=== PATIENT | male | born 1955 | race Caucasian/White ===

== ENCOUNTER 2016-10-04 17:33 | Emergency (ER) ==
[2016-10-04 17:38] VITALS: BP 172/84; TEMP 96.7; BMI 22.9
--- NOTE | 2016-10-04 17:50 | ED.PDOC ---
General ED Provider: Dr. NAREN PRIDE JR Chief Complaint: Nausea/Vomiting Stated Complaint: HAS HAD NAUSEA, VOMITING AND DIARRHEA FOR 1 WEEK, ALSO HAS BACK PAIN. WORSE TODAY. ATE CHILI CHEESE FRITOS TODAY AND UNABLE TO KEEP THEM DOWN [End] 96.7 68 18 97% 172/84 10/10 6 times 24 hours last 30 min ago. staes nausea only three days with dry heaves past 12 hours emesis six times in a row after eating today(no chili no cheese)complains of feeling weak pain in neck back and abdomen, agrees to try oral zofran for symptoms Time Seen by Physician: 17:49 Mode of Arrival: Walk-In Information Source: Patient Exam Limitations: No limitations Primary Care Provider: FELICIA AK Nursing and Triage Documentation Reviewed and Agree: No Review of Systems - Review Of Systems Constitutional: Reports: Malaise, Weakness Eyes: Reports: No symptoms Ears, Nose, Mouth, Throat: Reports: No symptoms Respiratory: Reports: No symptoms Cardiac: Reports: No symptoms GI: Reports: Abdominal pain, Diarrhea, Nausea, Vomiting : Reports: Burning, Flank pain, Pain Musculoskeletal: Reports: Back pain Skin: Reports: No symptoms Neurological: Reports: No symptoms Endocrine: Reports: No symptoms Hematologic/Lymphatic: Reports: No symptoms All Other Systems: Other Past Medical History - Past Medical History Endocrine: Reports: Dyslipidemia Cardiovascular: Reports: CAD, [facility], Hypertension Respiratory: Reports: COPD Hematological: Reports: None Gastrointestinal: Reports: None Genitourinary: Reports: None Neuro/Psych: Reports: None Musculoskeletal: Reports: Back Pain, Joint Pain Cancer: Reports: None - Surgical History General Surgical History: Reports: Back Surgery (back surgery 1978) - Family History Family History: Reports: Hypertension - Social History Smoking Status: Current every day smoker, Heavy tobacco smoker Hx Substance Use: No Alcohol Screening: None Physical Exam - Physical Exam Appearance: Well-appearing Ill-appearing: Mild Pain Distress: Mild Eyes: NILE, EOMI, Conjunctiva clear ENT: Ears normal, Nose normal, Oropharynx normal Neck: Supple Respiratory: Airway patent, Breath sounds clear, Breath sounds equal, Respirations nonlabored Cardiovascular: RRR, Pulses normal, No rub, No murmur GI/: Soft, No masses, Bowel sounds normal, No Organomegaly, Tender (mildly poorly localized periumbilical no rebound no guarding) Musculoskeletal: Normal strength, ROM intact, No edema, No calf tenderness Skin: Warm, Dry, Normal color Neurological: Sensation intact, Motor intact, Reflexes intact, Cranial nerves intact, Alert, Oriented Psychiatric: Affect appropriate (but-smiles when reporting pain), Mood appropriate Interpretation - EKG Interpretation Time of EKG #1: 18:00 Rate: German (58) Rhythm: Sinus Ectopy: None Butler: NL ST Segment: Normal Critical Care Note - Critical Care Note Total Time (mins): 0 Course - Course Hematology/Chemistry: 10/04/16 17:59 10/04/16 17:59 Orders, Labs, Meds: Lab Review 10/04/16 10/04/16 17:59 18:30 WBC 8.70 RBC 3.46 L Hgb 10.4 L Hct 31.2 L MCV 90.2 MCH 30.1 MCHC 33.3 RDW Coeff of Kody 14.1 Plt Count 271 Immature Gran % (Auto) 0.2 Neut % (Auto) 60.6 Lymph % (Auto) 24.7 Donley % (Auto) 10.2 H Eos % (Auto) 3.3 Baso % (Auto) 1.0 Immature Gran # (Auto) 0.0 Neut # 5.3 Lymph # 2.2 Donley # 0.9 Eos # 0.3 Baso # 0.1 Sodium 139 Potassium 4.0 Chloride 107 Carbon Dioxide 23 Anion Gap 13.0 BUN 16 Creatinine 1.38 H Estimated GFR (MDRD) 52.00 BUN/Creatinine Ratio 11.59 Glucose 104 Calcium 8.8 Total Bilirubin 0.29 AST 16 ALT 14 Alkaline Phosphatase 91 Total Creatine Kinase 45 Troponin I < 0.0100 B-Natriuretic Peptide 63 Total Protein 6.8 Albumin 3.4 Globulin 3.4 Albumin/Globulin Ratio 1.00 Urine Color Yellow Urine Clarity Clear Urine pH 5.5 Ur Specific [place] 1.025 Urine Protein Negative Urine Glucose (UA) Negative Urine Ketones Negative Urine Blood Trace-intact Urine Nitrite Negative Urine Bilirubin Negative Urine Urobilinogen 0.2 Ur Leukocyte Esterase Negative Ur Squamous Epith Cells Pending Orders Category Date Time Status EKG-(ED ONLY) Stat CARDIO 10/04/16 17:51 Completed B-TYPE NATRIURETIC PEPTIDE Stat LAB 10/04/16 17:59 Completed CBC W/ AUTO DIFF Stat LAB 10/04/16 17:59 Completed COMPREHENSIVE METABOLIC PANEL Stat LAB 10/04/16 17:59 Completed CREATINE KINASE Stat LAB 10/04/16 17:59 Completed D-DIMER Stat LAB 10/04/16 17:59 Received TROPONIN I Stat LAB 10/04/16 17:59 Completed UA [URINALYSIS C & S IF INDICATED] Stat LAB 10/04/16 18:30 Received Ondansetron HCl [Zofran Tab] MEDS 10/04/16 17:52 Discontinued 4 mg PO ONCE STA Medications Discontinued Medications Generic Name Dose Route Start Last Admin Trade Name Talq PRN Reason Stop Dose Admin Ondansetron HCl 4 mg 10/04/16 17:52 10/04/16 18:13 Zofran Tab PO 10/04/16 17:53 4 mg ONCE STA Administration Vital Signs: Temp Pulse Resp BP Pulse Ox 10/04/16 17:33 96.7 F L 69 18 172/84 H 97 Departure - Departure Time of Disposition: 18:42 Disposition: HOME SELF-CARE Discharge Problem: Nausea, Vomiting Instructions: Acute Nausea and Vomiting (ED), Abdominal Pain (ED) Condition: Good Pt referred to PMD for follow-up: Yes Additional Instructions: clear liquids when you have nausea clear liquids for 12 hours after vomiting increase liquids phenergan or zofran for nausea(phenergan costs less) may use peptobismol for diarrhea recheck PMD next week may follow with [facility] probably best to call [facility] for prescriptions or follow up if qualified Prescriptions: Ondansetron HCl [Zofran Tab] 4 mg PO QID PRN #12 tablet PRN Reason: Nausea / Vomiting Promethazine HCl [Phenergan Tab] 25 mg PO QID PRN #12 tablet PRN Reason: Nausea / Vomiting Allergies/Adverse Reactions: Allergies meloxicam Adverse Reaction (Verified 10/04/16 17:38) Vomiting naproxen Adverse Reaction (Verified 10/04/16 17:38) Vomiting tramadol Adverse Reaction (Verified 10/04/16 17:38) Hives Home Medications: Ambulatory Orders Albuterol Sulfate 1.25 mg NEB QID PRN 01/26/13 Aspirin [Aspirin EC] 81 mg PO DAILY 01/26/13 Multivitamin [Multi-Vitamin Daily] 1 each PO DAILY 11/19/14 Carboxymethylcellulose Sodium [Lubricant Eye Drops] 1 drop EACHEYE QID PRN 06/12 Hydrocodone/Acetaminophen [[place] 10-325 Tablet] 1 each PO Q6HR PRN #7 tablet Ferrous Sulfate [Feosol] 325 mg PO BID 03/26/16 Lisinopril [Zestril] 20 mg PO DAILY 03/26/16 Diltiazem HCl [Cartia Xt] 60 mg PO BID 10/04/16 Ondansetron HCl [Zofran Tab] 4 mg PO QID PRN #12 tablet 10/04/16 Promethazine HCl [Phenergan Tab] 25 mg PO QID PRN #12 tablet 10/04/16
[2016-10-04] MEDS ORDERED: ZOFRAN TAB PO STA (17:52)
[2016-10-04 18:18] LABS: BASOPHILS # (AUTO) 0.1 K/uL (0-0.2); EOSINOPHILS # (AUTO) 0.3 K/ul (0.0-0.7); EOSINOPHILS % (AUTO) 3.3 % (0.0-7.0); HEMATOCRIT 31.2 % (42.0-52.0); HEMOGLOBIN 10.4 g/dl (14.0-18.0); IMMATURE GRANULOCYTE % (AUTO) 0.2 % (0.0-5.0); LYMPHOCYTES # (AUTO) 2.2 K/uL (0.60-3.4); LYMPHOCYTES % (AUTO) 24.7 (10.0-50.0); MEAN CORPUSCULAR HEMOGLOBIN 30.1 pg (27.0-31.0); MEAN CORPUSCULAR HGB CONC 33.3 (31.8-35.4); MEAN CORPUSCULAR VOLUME 90.2 fl (80.0-94.0); MONOCYTES # (AUTO) 0.9 K/uL (0.4-2.0); MONOCYTES % (AUTO) 10.2 (0-10); NEUTROPHILS # (AUTO) 5.3 K/ul (2.0-6.9); NEUTROPHILS % (AUTO) 60.6; PLATELET COUNT 271 10^3/uL (140-440); RED BLOOD COUNT 3.46 10^6/ul (4.70-6.10)
[2016-10-04 18:37] LABS: BILIRUBIN,URINE Negative (NEGATIVE); KETONES,URINE Negative (NEGATIVE); LEUKOCYTE ESTERASE ,URINE Negative (NEGATIVE); NITRITE,URINE Negative (NEGATIVE); PH,URINE 5.5 (5-9); PROTEIN,URINE Negative (NEGATIVE); URINE, BLOOD Trace-intact (NEGATIVE)
[2016-10-04 18:38] LABS: ALANINE AMINOTRANSFERASE 14 U/L (12-78); ALBUMIN 3.4 g/dL (3.4-5.0); ALKALINE PHOSPHATASE 91 U/L (56-119); ASPARTATE AMINO TRANSFERASE 16 U/L (15-37); BILIRUBIN,TOTAL 0.29 mg/dL (0.00-1.20); BLOOD UREA NITROGEN 16 mg/dL (7-18); BUN/CREATININE RATIO 11.59; CALCIUM 8.8 mg/dL (8.2-10.2); CARBON DIOXIDE 23 mmol/L (23-31); CHLORIDE 107 mmol/L (98-107); CREATINE KINASE 45 U/L; CREATININE 1.38 mg/dL (0.60-1.10); GLUCOSE 104 mg/dL (82-115); SODIUM 139 mmol/L (136-145); TOTAL PROTEIN 6.8 g/dL (5.8-8.1)
[2016-10-04 18:41] LABS: ADD URINE MICROSCOPIC YES
== END 2016-10-04 18:56 | disposition home or self-care (01) ==
LOC: ED 17:33
DX: R11.2 Nausea with vomiting, unspecified (principal); R19.7 Diarrhea, unspecified; R10.9 Unspecified abdominal pain; M54.9 Dorsalgia, unspecified; R53.1 Weakness; M54.2 Cervicalgia; I10 Essential (primary) hypertension; I25.10 Atherosclerotic heart disease of native coronary artery without angina pectoris; E78.5 Hyperlipidemia, unspecified; I25.2 Old myocardial infarction; F17.210 Nicotine dependence, cigarettes, uncomplicated; J44.9 Chronic obstructive pulmonary disease, unspecified; Z79.899 Other long term (current) drug therapy
CPT/HCPCS: 36415; 80053; 81001; 82550; 83880; 84484; 85025; 85379; 93005; 93010; 99283

== ENCOUNTER 2016-12-05 15:15 | Outpatient (CLI) ==
[2016-12-05 15:29] LABS: BASOPHILS # (AUTO) 0.1 K/uL (0-0.2); BASOPHILS % (AUTO) 0.7 % (0.0-3.0); EOSINOPHILS # (AUTO) 0.1 K/ul (0.0-0.7); EOSINOPHILS % (AUTO) 0.9 % (0.0-7.0); HEMATOCRIT 35.4 % (42.0-52.0); HEMOGLOBIN 11.9 g/dl (14.0-18.0); IMMATURE GRANULOCYTE % (AUTO) 0.4 % (0.0-5.0); LYMPHOCYTES # (AUTO) 2.5 K/uL (0.60-3.4); LYMPHOCYTES % (AUTO) 21.4 (10.0-50.0); MEAN CORPUSCULAR HEMOGLOBIN 30.6 pg (27.0-31.0); MEAN CORPUSCULAR HGB CONC 33.6 (31.8-35.4); MONOCYTES # (AUTO) 0.8 K/uL (0.4-2.0); MONOCYTES % (AUTO) 6.6 (0-10); NEUTROPHILS # (AUTO) 8.3 K/ul (2.0-6.9); PLATELET COUNT 286 10^3/uL (140-440); RED BLOOD COUNT 3.89 10^6/ul (4.70-6.10)
[2016-12-05 16:08] LABS: ALBUMIN 4.1 g/dL (3.4-5.0); ALBUMIN/GLOBULIN RATIO 0.93; ANION GAP 22.3; BILIRUBIN,TOTAL 0.33 mg/dL (0.00-1.20); BUN/CREATININE RATIO 12.55; CALCIUM 9.3 mg/dL (8.2-10.2); POTASSIUM 5.3 mmol/L (3.5-5.1); TOTAL PROTEIN 8.5 g/dL (5.8-8.1)
--- NOTE | 2016-12-05 16:11 | DI ---
Exam: Two x-rays of the chest. Comparison: 03/26/2016. Reason for exam: Chest pain. FINDINGS: No pneumothorax, pleural effusion, or focal consolidation. The cardiac silhouette is not enlarged. The imaged osseous structures appear grossly unremarkable without acute fracture. Impression: No acute cardiopulmonary process.
[2016-12-05 16:45] LABS: CREATININE 4.46 mg/dL (0.60-1.10)
== END 2016-12-05 15:16 | disposition home or self-care (01) ==
LOC: RAD 15:15
PROVIDERS: ATTEND Nurse Practitioner Family
DX: R07.89 Other chest pain (principal); R11.2 Nausea with vomiting, unspecified; R53.83 Other fatigue
CPT/HCPCS: 36415; 80053; 85025; 93005; 93010

== ENCOUNTER 2016-12-05 19:19 | Inpatient (IN) ==
[2016-12-05] MEDS ORDERED: GI COCKTAIL PO STA (19:25)
[2016-12-05] MEDS ORDERED: ZOFRAN 4 MG/2 ML IVP PRN (19:25)
[2016-12-05] MEDS ORDERED: SODIUM CHLORIDE 1,000 ML IV SCH (19:30)
[2016-12-05 19:51] LABS: AMYLASE 78 U/L (25-115); LIPASE 28 U/L (8-78)
--- NOTE | 2016-12-05 20:08 | CT ---
EXAM: CT abdomen and pelvis without contrast. HISTORY: Abdominal pain. TECHNIQUE: Multi-slice transaxial helical CT. Coronal and sagittal reformatons were performed. COMPARISON: 12/13/2007. FINDINGS: The heart is normal in size. Coronary artery calcifications are present. Bibasilar dependent atele ctasis is present. Otherwise the lung bases appear clear. Evaluation of the solid organs is limited without IV contrast. There is marked atrophy of the left kidney. There is compensatory hypertrophy of the right kidney. No evidence of renal calculus or hy dronephrosis is seen. The spleen is normal in size. There is no intrahepatic biliary ductal dilati on. The gallbladder, pancreas, and bilateral adrenal glands appear grossly unremarkable. The bowel is not dilated. The appendix is normal in size. The urinary bladder appears unremarkable. No evidence of free fluid in the abdomen pelvis is seen. Calcified plaques are present within the abdominal aorta and its major branch vessels. There is no retroperitoneal adenopathy. Osseous fus ion changes of the bilateral sacroiliac joints is present. Osteoarthritis of the bilateral hips are present. Laminectomy changes are seen at L5-S1. Osseous fusion changes of the posterior elements spanning L3-S1 are present. Neural foraminal narrowing is present at the lower lumbar levels. There is moderate to severe narrowing of the central canal at L3-L4. IMPRESSION: 1. No acute abdominal findings. 2. Marked atrophy of the left kidney. 3. No hydronephrosis, bowel obstruction, or intra-abdominal inflammation. 4. Operative changes of the lumbar spine with lower lumbar central canal and neural foraminal narro wing. MRI would better evaluate if clinically indicated. Moderate to severe narrowing of the centra l canal at L3-L4.
[2016-12-05 20:28] VITALS: BMI 23.3
[2016-12-05] MEDS: PROTONIX IV IVP SCH (20:28)
[2016-12-05] MEDS ORDERED: CARBOXYMETHYLCELLULOSE SODIUM EACHEYE PRN (20:34)
[2016-12-05] MEDS: MORPHINE 2 MG/ML SYRINGE IVP PRN (20:46)
[2016-12-05] MEDS ORDERED: CARDIZEM CD PO SCH (21:00)
[2016-12-06 01:27] LABS: TROPONIN I 0.031 ng/ml (0.0000-0.4000)
[2016-12-06 04:43] LABS: BASOPHILS # (AUTO) 0.1 K/uL (0-0.2); BASOPHILS % (AUTO) 1.2 % (0.0-3.0); EOSINOPHILS # (AUTO) 0.3 K/ul (0.0-0.7); EOSINOPHILS % (AUTO) 3.6 % (0.0-7.0); HEMATOCRIT 33.3 % (42.0-52.0); HEMOGLOBIN 11.1 g/dl (14.0-18.0); IMMATURE GRANULOCYTE % (AUTO) 0.2 % (0.0-5.0); LYMPHOCYTES # (AUTO) 2.8 K/uL (0.60-3.4); LYMPHOCYTES % (AUTO) 32.9 (10.0-50.0); MEAN CORPUSCULAR HEMOGLOBIN 30.2 pg (27.0-31.0); MEAN CORPUSCULAR HGB CONC 33.3 (31.8-35.4); MEAN CORPUSCULAR VOLUME 90.5 fl (80.0-94.0); MONOCYTES # (AUTO) 0.7 K/uL (0.4-2.0); MONOCYTES % (AUTO) 8.8 (0-10); NEUTROPHILS # (AUTO) 4.5 K/ul (2.0-6.9); NEUTROPHILS % (AUTO) 53.3; PLATELET COUNT 236 10^3/uL (140-440); RED BLOOD COUNT 3.68 10^6/ul (4.70-6.10); WHITE BLOOD COUNT 8.41 K/ul (4.2-10.2)
[2016-12-06 05:06] LABS: ALBUMIN 3.7 g/dL (3.4-5.0); ALBUMIN/GLOBULIN RATIO 1.09; ANION GAP 21.4; BILIRUBIN,TOTAL 0.34 mg/dL (0.00-1.20); BUN/CREATININE RATIO 18.88; CALCIUM 8.6 mg/dL (8.2-10.2); CREATININE 2.86 mg/dL (0.60-1.10); POTASSIUM 4.4 mmol/L (3.5-5.1); TOTAL PROTEIN 7.1 g/dL (5.8-8.1)
[2016-12-06] MEDS: MORPHINE 2 MG/ML SYRINGE IVP PRN ×2 (06:12→20:52)
[2016-12-06] MEDS ORDERED: PRILOSEC PO SCH (06:30)
[2016-12-06] MEDS ORDERED: ARTIFICIAL TEARS OPTH SOL OP PRN (07:03)
[2016-12-06] MEDS: SODIUM CHLORIDE 1,000 ML IV SCH (08:19)
[2016-12-06] MEDS: PROTONIX IV IVP SCH ×2 (08:49→20:42)
[2016-12-06] MEDS: DECADRON 4 MG/ML SDV IM SCH (08:49)
[2016-12-06] MEDS ORDERED: NON-FORMULARY MEDICATION (Multivitamin [Multi-Vitamin Daily] 1 EACH) PO SCH ×22 (09:00)
[2016-12-06] MEDS ORDERED: CARDIZEM PO SCH (09:00)
[2016-12-06] MEDS ORDERED: NON-FORMULARY MEDICATION (Lisinopril [Zestril] 20 MG) PO SCH ×22 (09:00)
[2016-12-06 09:46] LABS: TROPONIN I 0.01 ng/ml (0.0000-0.4000)
[2016-12-06] MEDS: DUONEB NEB SCH ×3 (10:04→20:03)
--- NOTE | 2016-12-06 10:06 | US ---
EXAM: Renal ultrasound. History: Left renal atrophy. Comparison: CT abdomen pelvis 12/05 2016 Technique: Multiple sonographic images through the kidneys were obtained. Color duplex Doppler was used to interrogate vascular flow. Findings: The right kidney measures 11.3 cm in long length demonstrating normal cortical echogenicity without evidence for hydronephrosis, mass or shadowing calculus. The visualized bladder demonstrates no gross abnormality. Left kidney measures 8 cm in long length without evidence for hydronephrosis, mass or shadowing calc ulus. Impression: 1. Normal right kidney. 2. Left renal atrophy.
[2016-12-06] MEDS: MULTIVITAMIN PO SCH (10:19)
[2016-12-06] MEDS: ZESTRIL PO SCH (10:20)
[2016-12-07] MEDS: SODIUM CHLORIDE 1,000 ML IV SCH (04:00)
[2016-12-07 04:49] LABS: BASOPHILS # (AUTO) 0.1 K/uL (0-0.2); BASOPHILS % (AUTO) 0.5 % (0.0-3.0); EOSINOPHILS # (AUTO) 0.1 K/ul (0.0-0.7); EOSINOPHILS % (AUTO) 0.5 % (0.0-7.0); HEMATOCRIT 30.5 % (42.0-52.0); HEMOGLOBIN 10.2 g/dl (14.0-18.0); IMMATURE GRANULOCYTE % (AUTO) 0.3 % (0.0-5.0); LYMPHOCYTES # (AUTO) 2.1 K/uL (0.60-3.4); LYMPHOCYTES % (AUTO) 22.4 (10.0-50.0); MEAN CORPUSCULAR HEMOGLOBIN 30.4 pg (27.0-31.0); MEAN CORPUSCULAR HGB CONC 33.4 (31.8-35.4); MEAN CORPUSCULAR VOLUME 90.8 fl (80.0-94.0); MONOCYTES # (AUTO) 0.7 K/uL (0.4-2.0); NEUTROPHILS # (AUTO) 6.4 K/ul (2.0-6.9); NEUTROPHILS % (AUTO) 69.3; PLATELET COUNT 234 10^3/uL (140-440); RED BLOOD COUNT 3.36 10^6/ul (4.70-6.10); WHITE BLOOD COUNT 9.26 K/ul (4.2-10.2)
[2016-12-07 05:11] LABS: ALBUMIN 3.3 g/dL (3.4-5.0); ALBUMIN/GLOBULIN RATIO 1.03; ANION GAP 17.1; BILIRUBIN,TOTAL 0.25 mg/dL (0.00-1.20); BUN/CREATININE RATIO 22.42; CALCIUM 8.3 mg/dL (8.2-10.2); CREATININE 1.65 mg/dL (0.60-1.10); POTASSIUM 5.1 mmol/L (3.5-5.1); TOTAL PROTEIN 6.5 g/dL (5.8-8.1)
[2016-12-07] MEDS: DUONEB NEB SCH ×2 (05:15→09:37)
[2016-12-07] MEDS: ZESTRIL PO SCH (08:28)
[2016-12-07] MEDS: MULTIVITAMIN PO SCH (08:28)
[2016-12-07] MEDS: DECADRON 4 MG/ML SDV IM SCH (08:29)
[2016-12-07] MEDS: PROTONIX IV IVP SCH (08:29)
[2016-12-07 10:41] VITALS: BP 146/69; TEMP 97.9
--- NOTE | 2016-12-07 15:52 | HP ---
DATE OF SERVICE: 12/05/16 REASON FOR HOSPITALIZATION: Nausea, vomiting and abdominal pain. HISTORY OF PRESENT ILLNESS: The patient is a 61 year old male who saw Radha Barber in the [facility] for nausea and vomiting and abdominal pain. She did some outpatient labs which showed the acute renal failure with the BUN 46, creatinine 4.6 and elevated potassium. The patient was sent to the emergency room for the admission. As I saw the patient here I did the direct admission on the patient. In review of renal failure and the gastroenteritis with abdominal pain, nausea and vomiting. He is vomiting whatever he eats and isn't able to keep anything down. Non- bilious vomiting. No blood in the vomiting. REVIEW OF SYSTEMS: CONSTITUTIONAL: No night sweats. Weakness and tiredness. No fever or chills. HEENT: Eyes: No visual changes. No eye pain. No eye discharge. ENT: No runny nose. No epistaxis. No sinus pain. No sore throat. No odynophagia. No ear pain. No congestion. RESPIRATORY: No cough, no congestion. No hemoptysis. CARDIOVASCULAR: No angina symptoms. No CHF symptoms. No atypical chest pain for CAD. No palpitations. No shortness of breath. GASTROINTESTINAL: Abdominal pain. Nausea and vomiting. No diarrhea or constipation. No hematemesis. No hematochezia. GENITOURINARY: No urgency. No frequency. No dysuria. No hematuria. No obstructive symptoms. No discharge. No pain. No significant abnormal bleeding. MUSCULOSKELETAL: No musculoskeletal pain. No joint swelling. No arthritis. NEUROLOGICAL: No headache. No neck pain. No syncope. No seizures. No dizziness. PSYCHIATRIC: Not anxious. No depression. No suicidal thoughts. No homicidal thoughts. SKIN: No rash. No lesions. No wounds. ENDOCRINE: No unexplained weight loss. No weight gain. HEMATOLOGIC/LYMPHATIC: No anemia. No purpura. No petechiae. No prolonged or excessive bleeding. No palpable lymph nodes. PERSONAL/FAMILY/SOCIAL HISTORY: The patient does smoke one pack a day. and lives with . Family history is significant for high blood pressure and heart problems. PAST MEDICAL/SURGICAL PROBLEMS: Coronary artery disease Heart attack 2010 Hypertension Dyslipidemia Headaches Migraine BPH Osteoarthritis Neck pain Depression Anxiety Right knee cartilage removal Spinal fusion, L4 in 1977. Left eye problem MEDICATIONS: Albuterol Aspirin Coreg Zestril Spirolactone Folic Acid Multivitamin Atorvastatin Eye drops [place] ALLERGIES: Meloxicam Naproxen Tramadol PHYSICAL EXAMINATION: VITAL SIGNS: Blood pressure 120/68, respiratory rate 20, heart rate 74 afebrile HEENT: Head normocephalic, atraumatic. Eyes: Extraocular muscles are intact. Pupils are equal, round and reactive to light and accommodation. Ears: No lesions. Nose appeared normal. Throat: No exudate or erythema. Mucosa dry. Pallor positive. No icterus. Mild distress from the abdominal pain. Epigastric tenderness. NECK: Supple. No JVD, no carotid bruit. No lymphadenopathy or thyromegaly. LUNGS: Clear to auscultation. Percussion note normal. Chest symmetrical. HEART: S1, S2, no S3. No murmurs. No cyanosis or clubbing. No ascites. Pulses: Dorsalis pedis and posterior tibial pulses +1 to +2 both sides. ABDOMEN: Soft. Nontender. Bowel sounds active. No CVA tenderness. No mass felt. EXTREMITIES: No edema. Full range of motion of all extremities, equal. NEUROLOGIC: No focal deficit. Cranial nerves II through XII are grossly intact. No headache, no double vision or headache. SKIN: Not dry. Intact. Turgor - normal. LYMPHATIC: No palpable lymph nodes/no lymphedema. MUSCULOSKELETAL: Normal joints with no swelling. Muscle tone is normal. ASSESSMENT: 1. Acute on chronic renal failure 2. Renal failure 3. Gastroenteritis 4. CAD 5. CHF 6. Dyslipidemia 7. Osteoarthritis 8. DJD spine 9. Depression 10.Anxiety PLAN: 1. Admit the patient to the regular floor 2. Telemetry protocol 3. Clear liquid diet 4. Morphine 2mg Q 6 hour PRN 5. Zofran Q 6 hour PRN 6. Protonix and GI cocktail 7. Continue home medication except for Spirolactone Will follow the patient in daily rounds. TIME SPENT: More than 70 minutes. MTDD
--- NOTE | 2016-12-26 13:18 | DS ---
DATE OF SERVICE: 12/07/16 FINAL DIAGNOSIS: 1. ACUTE RENAL FAILURE 2. HEAT EXHAUSTION 3. GASTROENTERITIS 4. ATROPHIC LEFT KIDNEY 5. ANEMIA 6. HYPERTENSION 7. DYSLIPIDEMIA 8. 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 HISTORY OF MIGRAINES 10. NICOTINE USE 11. SINUS BRADYCARDIA PLAN: 1. Discharge the patient home. 2. Follow up in the [facility] with one week. 3. Keep holding the medications Cardizem 60 mg twice daily. 4. Continue the rest of the home medications which are Albuterol inhalers nebulizer three times a day, eye drops, Hydrocodone one tablet p.o. twice daily , Zestril 20 p.o. daily, Multivitamin tablet, Prilosec 20 mg p.o. daily. 5. Diet-soft diet and advance as tolerated. 6. Activity as much as tolerated. DISEASE SPECIFIC EDUCATION: About dehydration, heat exhaustion, gastroenteritis , renal failure were discussed. Again, the patient had an evaluation of the left kidney, atrophic, for which the patient was given and explained to him in detail about what are the possibilities and it needs further evaluation. He verbalized understanding. HOSPITAL COURSE: Damien Yan who is a 61 year old male who sees Cookie Ca in the [facility] as an outpatient. The patient was nausea, vomiting and no feeling good. The prior day, the patient was working the whole day in the sun and was not able to drink enough water. The BUN and creatinine was evaluated. BUN was 56, creatinine was 4.46, at that time Cookie Ca told the patient to go to the emergency room. Potassium was 5.3. At that time, the patient was admitted directly to the floor for the IV fluids and rehydration. The patient was started on the IV fluids and his Cardizem was held because the patient was showing a heart rate of 50 and 54. So, with the IV fluids slowly the patient was feeling better. Zofran was given for nausea. The patient was kept NPO overnight and Protonix was given. With the given treatment, the patient started feeling better. Clear liquid started and he tolerated this well and did not vomit and then soft diet was started. Meanwhile, the BUN and creatinine was getting better from 56 to 54 then 37. Creatinine from 4.462 and 1.65. The patient was eating, up and about and walking. He did not have any complications. CT of the abdomen showed the atrophic left kidney and to get more evaluation with an ultrasound of the kidney, which did again show the 8 cm left kidney, although there was no mass or any other obstructions there. We will be evaluating this as an outpatient and with a urology consultation. The patient is willing to go home. He is up and about walking, so the patient was discharged to home. Time spent on the patient is more than 60 minutes today. HENRY
== END 2016-12-07 11:35 | disposition home or self-care (01) | DRG 684 ==
LOC: MEDSURG B 19:19
PROVIDERS: ADMIT Emergency Medicine; ATTEND Emergency Medicine
DX: N17.9 Acute kidney failure, unspecified (principal); T67.5XXA Heat exhaustion, unspecified, initial encounter; N26.1 Atrophy of kidney (terminal); D64.9 Anemia, unspecified; I10 Essential (primary) hypertension; R00.1 Bradycardia, unspecified; E78.5 Hyperlipidemia, unspecified; M47.9 Spondylosis, unspecified; R11.2 Nausea with vomiting, unspecified; R07.89 Other chest pain; R53.83 Other fatigue; F17.200 Nicotine dependence, unspecified, uncomplicated; Z98.1 Arthrodesis status; Z86.69 Personal history of other diseases of the nervous system and sense organs; Z79.899 Other long term (current) drug therapy
CPT/HCPCS: 36415; 76770; 80053; 82150; 82550; 83690; 84484; 85025; 93005; 93010; 94640

== ENCOUNTER 2016-12-13 11:41 | Outpatient (CLI) ==
[2016-12-13 13:41] LABS: ALBUMIN 3.8 g/dL (3.4-5.0); BILIRUBIN,TOTAL 0.32 mg/dL (0.00-1.20); BUN/CREATININE RATIO 14.83; CALCIUM 9.4 mg/dL (8.2-10.2); CREATININE 1.82 mg/dL (0.60-1.10); TOTAL PROTEIN 7.6 g/dL (5.8-8.1)
== END 2016-12-13 11:42 | disposition home or self-care (01) ==
LOC: LAB 11:41
PROVIDERS: ATTEND Emergency Medicine
DX: N17.0 Acute kidney failure with tubular necrosis (principal)
CPT/HCPCS: 36415; 80053

== ENCOUNTER 2017-01-06 07:49 | Outpatient (CLI) ==
--- NOTE | 2017-01-06 09:09 | DI ---
EXAM: Chest two view, frontal and lateral views. HISTORY: Acute upper respiratory infection. COMPARISON: 12/05/2016. FINDINGS: The heart size is normal. There is no pulmonary vascular congestion. The lungs are jessica r. No pleural effusion or pneumothorax is seen. No acute osseous abnormality identified. Since prior study, there has been no significant interval change. IMPRESSION: No acute cardiopulmonary process.
--- NOTE | 2017-01-06 09:30 | DI ---
EXAM: Double contrast esophagram. History: Dysphagia, gastroesophageal reflux. Technique: Patient was given gas crystals. She was then given oral barium and multiple spot films of the esophagus and gastroesophageal junction were obtained in various projections. Findings: The course and caliber of the esophagus are within normal limits. No esophageal mucosal lesions or filling defects identified. No extravasation of contrast material. Gastroesophageal tez ction is patent. No hiatal hernia. Gastroesophageal reflux was present. No gastric outlet obstruc tion. Impression: Gastroesophageal reflux. No hiatal hernia.
== END 2017-01-06 07:50 | disposition home or self-care (01) ==
LOC: RAD 07:49
PROVIDERS: ATTEND Emergency Medicine
DX: R13.12 Dysphagia, oropharyngeal phase (principal); J06.9 Acute upper respiratory infection, unspecified

== ENCOUNTER 2017-01-10 13:32 | Outpatient (CLI) ==
[2017-01-10 13:44] LABS: BASOPHILS # (AUTO) 0.1 K/uL (0-0.2); BASOPHILS % (AUTO) 1.2 % (0.0-3.0); EOSINOPHILS # (AUTO) 0.2 K/ul (0.0-0.7); EOSINOPHILS % (AUTO) 2.5 % (0.0-7.0); HEMATOCRIT 32.2 % (42.0-52.0); HEMOGLOBIN 10.6 g/dl (14.0-18.0); IMMATURE GRANULOCYTE % (AUTO) 0.2 % (0.0-5.0); LYMPHOCYTES # (AUTO) 2.5 K/uL (0.60-3.4); LYMPHOCYTES % (AUTO) 26.4 (10.0-50.0); MEAN CORPUSCULAR HEMOGLOBIN 30.7 pg (27.0-31.0); MEAN CORPUSCULAR HGB CONC 32.9 (31.8-35.4); MEAN CORPUSCULAR VOLUME 93.3 fl (80.0-94.0); MONOCYTES # (AUTO) 0.5 K/uL (0.4-2.0); NEUTROPHILS # (AUTO) 6.1 K/ul (2.0-6.9); NEUTROPHILS % (AUTO) 64.7; PLATELET COUNT 339 10^3/uL (140-440); RED BLOOD COUNT 3.45 10^6/ul (4.70-6.10); WHITE BLOOD COUNT 9.35 K/ul (4.2-10.2)
[2017-01-10 13:58] LABS: ALBUMIN 3.6 g/dL (3.4-5.0); ALBUMIN/GLOBULIN RATIO 0.95; ANION GAP 19.1; BILIRUBIN,TOTAL 0.23 mg/dL (0.00-1.20); BUN/CREATININE RATIO 12.41; CALCIUM 9.6 mg/dL (8.2-10.2); CREATININE 1.45 mg/dL (0.60-1.10); POTASSIUM 4.1 mmol/L (3.5-5.1); TOTAL PROTEIN 7.4 g/dL (5.8-8.1)
== END 2017-01-10 13:33 | disposition home or self-care (01) ==
LOC: LAB 13:32
PROVIDERS: ATTEND Emergency Medicine
DX: D64.9 Anemia, unspecified (principal); I10 Essential (primary) hypertension; Z98.1 Arthrodesis status; Z12.5 Encounter for screening for malignant neoplasm of prostate
CPT/HCPCS: 36415; 80053; 82607; 83540; 83550; 85025

== ENCOUNTER 2017-04-24 09:35 | Outpatient (CLI) ==
--- NOTE | 2017-04-24 10:22 | CT ---
EXAM: CT ABDOMEN AND PELVIS HISTORY: Right lower quadrant pain. Blood in stool. Weight loss. TECHNIQUE: CT abdomen and pelvis without intravenous contrast. Images were reconstructed using 5 mm section thickness. Reformations were prepared. COMPARISON: 12/05/2016 FINDINGS: Diagnostic limitations exist without including contrast enhanced images. No obvious focal hepatic or splenic lesions. Gallbladder, pancreas and adrenal glands are within normal limits. Atrophic left kidney with moderate perinephric fat stranding, unchanged since previous exam. Left ureter is unrema rkable. The right kidney and ureter are normal. Mild to moderate atherosclerotic disease. Normal stomach. A few punctate areas of relative high attenuation within the appendiceal lumen may r epresent areas of dense debris or early appendicoliths. No evidence of appendicitis. Questionable mi ld thickening of the left transverse and descending colon. Nonobstructive bowel gas pattern. Urinar y bladder is normal. Mildly prominent prostate. No ascites. Prominent fatty bilateral inguinal canals. Bones demonstrate moderately severe facet arthropathy of the lower spine. Transitional vertebral body anatomy at the lumbosacral junction. Mild scoliosis. L kyle bases are clear. No pneumoperitoneum. IMPRESSION: 1. A few areas of high attenuation within the appendiceal lumen may represent areas of dense debris or early appendicolith formation. No current evidence of appendicitis. 2. Questionable mild thickening of the left transverse and upper descending colon. Conceivably a mi ld colitis could be present. Normal bowel gas pattern. No free air or ascites. 3. Atrophic left kidney is stable. Nonspecific left perinephric fat stranding is stable. 4. Mild to moderate atherosclerosis. 5. Mildly prominent prostate. 6. Significant degenerative changes of the lumbosacral junction.
[2017-04-24 11:04] LABS: BASOPHILS # (AUTO) 0.1 K/uL (0-0.2); BASOPHILS % (AUTO) 1.3 % (0.0-3.0); EOSINOPHILS # (AUTO) 0.3 K/ul (0.0-0.7); HEMATOCRIT 35.3 % (42.0-52.0); HEMOGLOBIN 11.6 g/dl (14.0-18.0); IMMATURE GRANULOCYTE % (AUTO) 0.2 % (0.0-5.0); LYMPHOCYTES # (AUTO) 2.7 K/uL (0.60-3.4); LYMPHOCYTES % (AUTO) 32.3 (10.0-50.0); MEAN CORPUSCULAR HEMOGLOBIN 29.6 pg (27.0-31.0); MEAN CORPUSCULAR HGB CONC 32.9 (31.8-35.4); MEAN CORPUSCULAR VOLUME 90.1 fl (80.0-94.0); MONOCYTES # (AUTO) 0.4 K/uL (0.4-2.0); MONOCYTES % (AUTO) 5.2 (0-10); NEUTROPHILS # (AUTO) 4.8 K/ul (2.0-6.9); PLATELET COUNT 372 10^3/uL (140-440); RED BLOOD COUNT 3.92 10^6/ul (4.70-6.10)
[2017-04-24 11:25] LABS: ALBUMIN 3.5 g/dL (3.4-5.0); ALBUMIN/GLOBULIN RATIO 0.9; BILIRUBIN,TOTAL 0.23 mg/dL (0.00-1.20); BUN/CREATININE RATIO 10.05; CALCIUM 9.7 mg/dL (8.2-10.2); CREATININE 1.69 mg/dL (0.60-1.10); TOTAL PROTEIN 7.4 g/dL (5.8-8.1)
== END 2017-04-24 09:36 | disposition home or self-care (01) ==
LOC: RAD 09:35
PROVIDERS: ATTEND Emergency Medicine
DX: R10.31 Right lower quadrant pain (principal)
CPT/HCPCS: 36415; 80053; 85025

== ENCOUNTER 2017-05-18 14:31 | Outpatient (CLI) | payer OTHER ==
[2017-05-18 14:44] LABS: BASOPHILS # (AUTO) 0.1 K/uL (0-0.2); BASOPHILS % (AUTO) 1.3 % (0.0-3.0); EOSINOPHILS # (AUTO) 0.4 K/ul (0.0-0.7); HEMATOCRIT 34.7 % (42.0-52.0); HEMOGLOBIN 11.1 g/dl (14.0-18.0); IMMATURE GRANULOCYTE % (AUTO) 0.2 % (0.0-5.0); LYMPHOCYTES # (AUTO) 2.9 K/uL (0.60-3.4); LYMPHOCYTES % (AUTO) 31.4 (10.0-50.0); MEAN CORPUSCULAR HEMOGLOBIN 28.8 pg (27.0-31.0); MEAN CORPUSCULAR VOLUME 90.1 fl (80.0-94.0); MONOCYTES # (AUTO) 0.7 K/uL (0.4-2.0); MONOCYTES % (AUTO) 7.8 (0-10); NEUTROPHILS # (AUTO) 5.1 K/ul (2.0-6.9); NEUTROPHILS % (AUTO) 55.3; PLATELET COUNT 457 10^3/uL (140-440); RED BLOOD COUNT 3.85 10^6/ul (4.70-6.10); WHITE BLOOD COUNT 9.29 K/ul (4.2-10.2)
[2017-05-18 15:04] LABS: ALANINE AMINOTRANSFERASE 27 U/L (12-78); ALBUMIN 3.2 g/dL (3.4-5.0); ALBUMIN/GLOBULIN RATIO 0.76; ALKALINE PHOSPHATASE 111 U/L (56-119); AMYLASE 67 U/L (25-115); ANION GAP 16.1; ASPARTATE AMINO TRANSFERASE 24 U/L (15-37); BLOOD UREA NITROGEN 15 mg/dL (7-18); BUN/CREATININE RATIO 9.37; CALCIUM 9.2 mg/dL (8.2-10.2); CARBON DIOXIDE 20 mmol/L (23-31); CHLORIDE 107 mmol/L (98-107); GLUCOSE 103 mg/dL (82-115); LIPASE 31 U/L (8-78); POTASSIUM 4.1 mmol/L (3.5-5.1); SODIUM 139 mmol/L (136-145); TOTAL PROTEIN 7.4 g/dL (5.8-8.1)
[2017-05-18 15:05] LABS: BILIRUBIN,TOTAL < 0.3 mg/dL (0.00-1.20)
--- NOTE | 2017-05-18 15:20 | DI ---
EXAM: Two views of the chest. History: Primary hypertension. Comparison: Chest radiograph 01/06/2017 Findings: Heart size is normal. No focal consolidation. No appreciable pleural fluid and no pneumo thorax. No acute osseous abnormalities. Impression: No acute cardiopulmonary process
== END 2017-05-18 14:32 | disposition home or self-care (01) ==
LOC: LAB 14:31
PROVIDERS: ATTEND Nurse Practitioner Family
DX: R05 Cough (principal); I10 Essential (primary) hypertension; R10.84 Generalized abdominal pain
CPT/HCPCS: 36415; 80053; 82150; 83690; 85025

== ENCOUNTER 2017-08-01 11:46 | Outpatient (CLI) ==
--- NOTE | 2017-08-01 12:10 | DI ---
EXAM: Two views of the chest. History: Chest pain. Comparison: Chest radiograph 05/18/2017 Findings: Heart size is normal. No focal consolidation. No appreciable pleural fluid and no pneumo thorax. No acute osseous abnormalities. Impression: No acute cardiopulmonary process. No change compared to the prior study.
== END 2017-08-01 11:47 | disposition home or self-care (01) ==
LOC: LAB 11:46
PROVIDERS: ATTEND Emergency Medicine
DX: R55 Syncope and collapse (principal); R07.2 Precordial pain; I10 Essential (primary) hypertension; J06.9 Acute upper respiratory infection, unspecified
CPT/HCPCS: 36415; 80053; 82550; 84484; 85025; 93005; 93010

== ENCOUNTER 2017-10-13 09:47 | Emergency (ER) | payer OTHER ==
[2017-10-13 09:58] VITALS: BP 124/83; TEMP 97.5; BMI 24.4
[2017-10-13] MEDS ORDERED: DUONEB NEB STA (10:09)
[2017-10-13] MEDS ORDERED: DECADRON 4 MG/ML SDV IM STA (10:10)
--- NOTE | 2017-10-13 10:51 | DI ---
Exam: Two x-rays of the chest. Comparison: 08/01/2017. Reason for exam: Cough. FINDINGS: No pneumothorax, pleural effusion, or focal consolidation. The cardiac silhouette is not e nlarged. The imaged osseous structures appear grossly unremarkable without acute fracture. Degenera tive disease is seen in the thoracic spine. Impression: No acute cardiopulmonary process.
--- NOTE | 2017-10-13 11:43 | ED.PDOC ---
General ED Provider: Dr. AFUA BABB Chief Complaint: Non-specific Complaint Stated Complaint: cough, wheez Time Seen by Physician: 10:00 Mode of Arrival: Walk-In Information Source: Patient Exam Limitations: No limitations [facility] Nursing and Triage Documentation Reviewed and Agree: Yes Reviewed sepsis parameters & appropriate labs ordered?: Yes System Inflammatory Response Syndrome: Not Applicable Sepsis Protocol: For patient's 13 years and over: Temp is 96.8 and below OR 101 and greater Pulse >90 BPM Resp >20/minute Acutely Altered Mental Status Are patient's symptoms suggestive of a new infection, such as: -Pneumonia -Skin, Soft Tissue -Endocarditis -UTI -Bone, Joint Infection -Implantable Device -Acute Abdominal Infection -Wound Infection -Meningitis -Blood Stream Catheter Infection -Unknown System Inflammatory Response Syndrome: Not Applicable Respiratory Complaint Exam - Respiratory Complaint/Exam Onset/Duration: 1 week Symptoms Are: Resolved Timing: Intermittent Initial Severity: Mild Current Severity: Mild Location: Nose, Throat, Chest Character: Reports: Non-productive cough, Dry cough Aggravating: Reports: URI Alleviating: Reports: Bronchodilators, Spontaneous resolution Associated Signs and Symptoms: Reports: URI, Nasal congestion Related History: Reports: Similar episode History of Healthcare-Acquired Pneumonia: No Related Surgical History: Reports: None Pulmonary Embolism Risk Factors: Smoking Cardiac Risk Factors: Reports: Smoking, Hypertension Pseudomonas Risk Factors: Reports: None Tuberculosis Risk Factors: Reports: None Status Asthmaticus Risk Factors: Reports: None Home Oxygen Use: No Recent Stress Test: No Recent Echo/LV Function: No Current Antibiotic Use: No Current Asthma Medication Use: No Respiratory Distress: None Inadequate Respiratory Effort: No Dysphagia Present: No Stridor Present: No JVD Present: No Accessory Muscle Use: No Retractions: Not Present Diminished Breath Sounds: No Sinus Tenderness: None Grunting Respirations: No Kussmaul Respirations: No Differential Diagnoses: Pneumonia, Bronchitis Review of Systems - Review Of Systems Constitutional: Reports: No symptoms Eyes: Reports: No symptoms Ears, Nose, Mouth, Throat: Reports: No symptoms Respiratory: Reports: Cough, Wheezing Cardiac: Reports: No symptoms GI: Reports: No symptoms : Reports: No symptoms Musculoskeletal: Reports: No symptoms Skin: Reports: No symptoms Neurological: Reports: No symptoms Endocrine: Reports: No symptoms Hematologic/Lymphatic: Reports: No symptoms All Other Systems: Reviewed and Negative Past Medical History - Past Medical History Previously Healthy: Yes Endocrine: Reports: Dyslipidemia Cardiovascular: Reports: CAD, [place], Hypertension Respiratory: Reports: COPD Hematological: Reports: None Gastrointestinal: Reports: None Genitourinary: Reports: None Neuro/Psych: Reports: None Musculoskeletal: Reports: Back Pain, Joint Pain Cancer: Reports: None Other Pertinent Past Medical History: back surgery 1978 HTN CHOL [place] COPD CAD - Surgical History General Surgical History: Reports: Back Surgery (back surgery 1978) - Family History Family History: Reports: Hypertension - Social History Smoking Status: Current every day smoker, Heavy tobacco smoker Hx Substance Use: No Alcohol Screening: None - Immunizations Tetanus Shot up to Date: No Physical Exam - Physical Exam Appearance: Ill-appearing Eyes: NILE, EOMI, Conjunctiva clear ENT: Ears normal, Nose normal, Oropharynx normal Respiratory: Breath sounds diminished, Wheezes Cardiovascular: RRR, Pulses normal, No rub, No murmur GI/: Soft, Nontender, No masses, Bowel sounds normal, No Organomegaly Musculoskeletal: Normal strength, ROM intact, No edema, No calf tenderness Skin: Warm, Dry, Normal color Neurological: Sensation intact, Motor intact, Reflexes intact, Cranial nerves intact, Alert, Oriented Psychiatric: Affect appropriate, Mood appropriate Interpretation - Radiology Interpretation Radiology Interpretation By: Radiologist Radiology Results: No acute changes Physician Notification - Case Discussed Physician Notified: pmd Time of Notification: 11:45 (pmd stated admitt pt) Critical Care Note - Critical Care Note Total Time (mins): 0 Course - Course Hematology/Chemistry: 10/13/17 10:25 10/13/17 10:25 Orders, Labs, Meds: Lab Review 10/13/17 10/13/17 10:25 10:25 WBC 9.20 RBC 4.10 L Hgb 12.3 L Hct 36.6 L MCV 89.3 MCH 30.0 MCHC 33.6 RDW Coeff of Kody 15.1 H Plt Count 322 Immature Gran % (Auto) 0.4 Neut % (Auto) 63.8 Lymph % (Auto) 26.2 Bibb % (Auto) 6.0 Eos % (Auto) 2.3 Baso % (Auto) 1.3 Immature Gran # (Auto) 0.0 Neut # (Auto) 5.9 Lymph # (Auto) 2.4 Bibb # (Auto) 0.6 Eos # (Auto) 0.2 Baso # (Auto) 0.1 Sodium 137 Potassium 4.6 Chloride 110 H Carbon Dioxide 16 L Anion Gap 15.6 BUN 37 H Creatinine 2.31 H Estimated GFR (MDRD) 29.00 BUN/Creatinine Ratio 16.01 Glucose 106 Calcium 8.8 Total Bilirubin 0.4 AST 13 L ALT 12 Alkaline Phosphatase 100 Total Protein 7.4 Albumin 3.6 Globulin 3.8 Albumin/Globulin Ratio 0.95 Orders Category Date Time Status NEBULIZER TREATMENT Stat CARDIO 10/13/17 10:10 Completed BLOOD CULTURE (ED ONLY) Stat LAB 10/13/17 10:25 Received CBC W/ AUTO DIFF Stat LAB 10/13/17 10:25 Completed COMPREHENSIVE METABOLIC PANEL Stat LAB 10/13/17 10:25 Completed EHRLICHIA DNA, PCR Stat LAB 10/13/17 10:25 Received LYME, WESTERN BLOT, SERUM Stat LAB 10/13/17 10:25 Received CASI MTN SPOTTED FEVER,IgG Routine LAB 10/13/17 Ordered CASI MTN SPOTTED FEVER,IgM Routine LAB 10/13/17 10:09 Ordered URINALYSIS C & S IF INDICATED Stat LAB 10/13/17 11:38 Ordered Dexamethasone 4 mg/ml Inj [Decadron 4 mg/ml Sdv] MEDS 10/13/17 10:10 Discontinued 4 mg IM ONCE STA Ipratropium/Albuterol Neb [Duoneb] MEDS 10/13/17 10:09 Discontinued 1 vial NEB ONCE STA CHEST, 2 VIEWS PA & LAT Stat RADS 10/13/17 10:08 Completed Medications Discontinued Medications Generic Name Dose Route Start Last Admin Trade Name Freq PRN Reason Stop Dose Admin Albuterol/Ipratropium 1 vial 10/13/17 10:09 10/13/17 10:29 Duoneb NEB 10/13/17 10:10 1 vial ONCE STA Administration Dexamethasone Sodium Phosphate 4 mg 10/13/17 10:10 10/13/17 10:43 Decadron 4 Mg/Ml Sdv IM 10/13/17 10:11 4 mg ONCE STA Administration Vital Signs: Temp Pulse Resp BP Pulse Ox 10/13/17 09:48 97.5 F L 81 20 124/83 96 Departure - Departure Time of Disposition: 11:43 (reported tick bites last week. discussed admission with pt but pt refused to be admitted decline in renal function discussed still refusing admission ) Disposition: AMA Discharge Problem: Bronchitis, Renal failure Instructions: How to Stop Smoking (ED), Acute Bronchitis (ED), Acute Kidney Injury (DC) Condition: Good Pt referred to PMD for follow-up: Yes IPMP verified?: No Additional Instructions: Please call your Family Physician as soon as possible to schedule a follow-up appointment.your kidney function is poor please see your doctor as soon as posible failure to do so may land you in dialysis Allergies/Adverse Reactions: Allergies prednisone Adverse Reaction (Severe, Verified 10/13/17 09:55) irritability meloxicam Adverse Reaction (Verified 10/13/17 09:55) Vomiting naproxen Adverse Reaction (Verified 10/13/17 09:55) Vomiting tramadol Adverse Reaction (Verified 10/13/17 09:55) Hives Home Medications: Ambulatory Orders Albuterol Sulfate 1.25 mg NEB TID PRN 01/26/13 Carboxymethylcellulose Sodium [Lubricant Eye Drops] 1 drop EACHEYE QID PRN 06/12 Lisinopril [Zestril] 20 mg PO DAILY 03/26/16 Hydrocodone Bit/Acetaminophen [Lortab 10-500] 1 tab PO BID PRN 12/05/16 Disposition Discussed With: Patient
== END 2017-10-13 11:58 | disposition left against medical advice (07) ==
LOC: ED 09:47
DX: J40 Bronchitis, not specified as acute or chronic (principal); N19 Unspecified kidney failure; I10 Essential (primary) hypertension; J44.9 Chronic obstructive pulmonary disease, unspecified; E78.5 Hyperlipidemia, unspecified; I25.10 Atherosclerotic heart disease of native coronary artery without angina pectoris; I25.2 Old myocardial infarction; F17.210 Nicotine dependence, cigarettes, uncomplicated; T14.8XXA Other injury of unspecified body region, initial encounter; W57.XXXA Bitten or stung by nonvenomous insect and other nonvenomous arthropods, initial encounter
CPT/HCPCS: 36415; 80053; 81001; 85025; 86617; 86757; 87040; 87798; 94640; 96372; 99284

== ENCOUNTER 2018-01-15 06:12 | Emergency (ER) ==
[2018-01-15 06:25] VITALS: BP 101/66; TEMP 99.9; BMI 23.6
[2018-01-15] MEDS ORDERED: SOLU-MEDROL 40 MG IVP STA (06:38)
[2018-01-15] MEDS ORDERED: DUONEB NEB STA (06:38)
[2018-01-15] MEDS ORDERED: ROCEPHIN 1 GM in SODIUM CHLORIDE 50 ML IV STA (06:38)
--- NOTE | 2018-01-15 06:42 | ED.PDOC ---
General Stated Complaint: im coughing and wheezing--i saw dr stiles last week and got meds and i also fell and my neck, head,back and left knee hurt Time Seen by Physician: 06:15 Mode of Arrival: Walk-In Information Source: Patient Exam Limitations: No limitations Nursing and Triage Documentation Reviewed and Agree: Yes Does patient meet sepsis criteria?: Yes If yes, has appropriate treatment been initiated?: Yes System Inflammatory Response Syndrome: Not Applicable <EPI BAIN - Last Filed: 01/15/18 07:03> <AFUA BABB - Last Filed: 01/15/18 08:57> ED Provider: Dr. AFUA BABB Chief Complaint: Non-specific Complaint [facility] Sepsis Protocol: For patient's 13 years and over: Temp is 96.8 and below OR 101 and greater Pulse >90 BPM Resp >20/minute Acutely Altered Mental Status Are patient's symptoms suggestive of a new infection, such as: -Pneumonia -Skin, Soft Tissue -Endocarditis -UTI -Bone, Joint Infection -Implantable Device -Acute Abdominal Infection -Wound Infection -Meningitis -Blood Stream Catheter Infection -Unknown Respiratory Complaint Exam - Respiratory Complaint/Exam Onset/Duration: 1 week Symptoms Are: Still present Timing: Intermittent Initial Severity: Mild Current Severity: Moderate Location: Chest Character: Reports: Productive cough Aggravating: Reports: URI Alleviating: Reports: Bronchodilators Associated Signs and Symptoms: Reports: Fever, Chills, Wheezing. Denies: Rapid breathing, Dyspnea, Chest pain, Pleuritic chest pain, Hemoptysis, Dizziness, Calf pain, Calf swelling, Edema, URI, Nasal congestion, Hoarseness Related History: Reports: Similar episode History of Healthcare-Acquired Pneumonia: No Pulmonary Embolism Risk Factors: None Pseudomonas Risk Factors: Reports: Chronic Lung Disease Home Oxygen Use: No Recent Stress Test: No Recent Echo/LV Function: No Current Antibiotic Use: No Current Asthma Medication Use: No Respiratory Distress: Mild Inadequate Respiratory Effort: No Dysphagia Present: No Stridor Present: No JVD Present: No Accessory Muscle Use: No Retractions: Not Present Diminished Breath Sounds: No Sinus Tenderness: None Grunting Respirations: No Kussmaul Respirations: No Differential Diagnoses: COPD Exacerbation, Pneumonia, Bronchitis Non-Traumatic Chest Pain Syncope: EKG Performed <EPI BAIN - Last Filed: 01/15/18 07:03> - Shortness of Air Complaint/Exam Onset/Duration: 1 day Symptoms Are: Still present Timing: Intermittent Initial Severity: Mild Current Severity: Mild Character: Reports: Dyspnea on exertion Aggravating: Reports: None Alleviating: Reports: Spontaneous resolution Associated Signs and Symptoms: Reports: Cough, Nasal congestion. Denies: Wheezing, Chest pain with cough, Chest pain, Fever, Chills, Diaphoresis, Dizziness, Calf pain, Calf swelling, Edema, Rapid breathing, Labored breathing, Decreased intake Related History: Reports: Similar episode History of Healthcare-Acquired Pneumonia: No Pulmonary Embolism Risk Factors: Reports: Smoking Cardiac Risk Factors: Reports: Smoking Pseudomonas Risk Factors: Reports: Chronic Lung Disease Tuberculosis Risk Factors: Reports: Chronic Resp. Faliure Home Oxygen Use: No Recent Stress Test: No Recent Echo/LV Function: No Respiratory Distress: None Stridor Present: No Tracheal Deviation: No Subcutaneous Emphysema: No Accessory Muscle Use: No Retractions: Not Present Diminished Breath Sounds: Yes Prolonged Expiratory Phase: No Unable to Speak Full Sentences: No Fatigue: No Leg Swelling: No Jeanne's Sign Present: No Grunting Respirations: No Differential Diagnoses: Airway Obstruction, Asthma, Pulmonary Edema, COPD Exacerbation, Pneumonia, Bronchitis Quality Indicators for AMI: EKG in 10min. Quality Indicators for Cardiac Chest Pain: EKG in 10min. Quality Indicator For Non-Traumatic Chest Pain/Syncope: EKG Performed Related Surgical History: Reports: None <AFUA BABB - Last Filed: 01/15/18 08:57> Review of Systems - Review Of Systems Constitutional: Reports: Chills, Fever, Weakness, Loss of appetite Eyes: Reports: No symptoms Ears, Nose, Mouth, Throat: Reports: No symptoms Respiratory: Reports: Cough, Wheezing Cardiac: Reports: No symptoms GI: Reports: No symptoms : Reports: No symptoms Musculoskeletal: Reports: No symptoms Skin: Reports: No symptoms Neurological: Reports: No symptoms Endocrine: Reports: No symptoms Hematologic/Lymphatic: Reports: No symptoms All Other Systems: Reviewed and Negative <EPI BAIN - Last Filed: 01/15/18 07:03> - Review Of Systems Eyes: Reports: No symptoms Ears, Nose, Mouth, Throat: Reports: No symptoms Respiratory: Reports: No symptoms Cardiac: Reports: No symptoms GI: Reports: No symptoms : Reports: No symptoms Musculoskeletal: Reports: No symptoms Skin: Reports: No symptoms Neurological: Reports: No symptoms Endocrine: Reports: No symptoms Hematologic/Lymphatic: Reports: No symptoms All Other Systems: Reviewed and Negative <HOLLEYAFUA - Last Filed: 01/15/18 08:57> Past Medical History - Past Medical History Previously Healthy: Yes Endocrine: Reports: Dyslipidemia Cardiovascular: Reports: CAD, AL, Hypertension Respiratory: Reports: COPD Hematological: Reports: None Gastrointestinal: Reports: None Genitourinary: Reports: None Neuro/Psych: Reports: None Musculoskeletal: Reports: Back Pain, Joint Pain Cancer: Reports: None Other Pertinent Past Medical History: back surgery 1978 HTN CHOL AL COPD CAD - Surgical History General Surgical History: Reports: Back Surgery (back surgery 1978) - Family History Family History: Reports: Hypertension - Social History Smoking Status: Current every day smoker, Heavy tobacco smoker Hx Substance Use: No Alcohol Screening: None - Immunizations Tetanus Shot up to Date: Yes <JADEGRACIELAEPI - Last Filed: 01/15/18 07:03> Physical Exam - Physical Exam Appearance: Well-appearing Pain Distress: Mild Eyes: NILE ENT: Ears normal, Nose normal, Oropharynx normal Neck: Supple Respiratory: Airway patent, Breath sounds clear, Breath sounds equal, Respirations nonlabored Cardiovascular: RRR, Pulses normal, No rub, No murmur GI/: Soft, Nontender, No masses, Bowel sounds normal, No Organomegaly Musculoskeletal: Normal strength Skin: Warm Neurological: Sensation intact Psychiatric: Affect appropriate, Mood appropriate, Anxious <EPI BAIN - Last Filed: 01/15/18 07:03> Interpretation - Radiology Interpretation Radiology Interpretation By: Radiologist Radiology Results: No acute changes (c, t, l spine) - Fire Assistant Rate: Normal Rhythm: Sinus Ectopy: None - EKG Interpretation Rate: Normal Rhythm: Sinus Ectopy: None [place]: Left ST Segment: Normal <HOLLEYAFUA - Last Filed: 01/15/18 08:57> Re-Evaluation - Re-Evaluation Time of Re-Evaluation: 07:00 Status: Improved Vital Signs Stable: Yes Pain Level: 0 Appearance: NAD Lungs: Clear Skin: Warm and Dry Neuro: Alert and Oriented X3 CV: RRR - Re-Evaluation Time of Re-Evaluation: 08:54 Status: Improved Vital Signs Stable: Yes Pain Level: 0 Appearance: NAD Skin: Warm and Dry Neuro: Alert and Oriented X3 CV: RRR <AFAU BABB - Last Filed: 01/15/18 08:57> Physician Notification - Case Discussed Physician Notified: dr babb Time of Notification: 07:00 <TAYAEPI - Last Filed: 01/15/18 07:03> Critical Care Note - Critical Care Note Total Time (mins): 0 <AFUA BABB - Last Filed: 01/15/18 08:57> Course - Course Hematology/Chemistry: 01/15/18 06:50 01/15/18 06:50 <AFUA BABB - Last Filed: 01/15/18 08:57> - Course Orders, Labs, Meds: Lab Review 01/15/18 01/15/18 01/15/18 06:36 06:50 06:50 WBC 12.87 H RBC 3.32 L Hgb 10.1 L Hct 31.3 L MCV 94.3 H MCH 30.4 MCHC 32.3 RDW Coeff of Kody 15.1 H Plt Count 191 Immature Gran % (Auto) 0.3 Neut % (Auto) 75.4 Lymph % (Auto) 14.8 [place] % (Auto) 7.2 Eos % (Auto) 1.4 Baso % (Auto) 0.9 Immature Gran # (Auto) 0.0 Neut # (Auto) 9.7 H Lymph # (Auto) 1.9 [place] # (Auto) 0.9 Eos # (Auto) 0.2 Baso # (Auto) 0.1 D-Dimer (Manual) Puncture Site R rad O2 Saturation 97.0 ABG pH 7.337 L ABG pCO2 28.9 L ABG pO2 90.0 ABG HCO3 15.5 L ABG Total CO2 16 L ABG Base Excess -10 L Lu[place] Test + O2 Delivery Device Ra FiO2 % 21.0 Sodium 138 Potassium 5.5 H Chloride 115 H Carbon Dioxide 16 L Anion Gap 12.5 BUN 50 H Creatinine 2.21 H Estimated GFR (MDRD) 30.00 BUN/Creatinine Ratio 22.62 Glucose 102 Lactic Acid Calcium 8.3 Total Bilirubin 0.4 AST 31 ALT 30 Alkaline Phosphatase 94 B-Natriuretic Peptide Total Protein 6.6 Albumin 3.0 L Globulin 3.6 Albumin/Globulin Ratio 0.83 Procalcitonin Urine Color Urine Clarity Urine pH Ur Specific [place] Urine Protein Urine Glucose (UA) Urine Ketones Urine Blood Urine Nitrite Urine Bilirubin Urine Urobilinogen Ur Leukocyte Esterase 01/15/18 01/15/18 01/15/18 06:50 06:50 06:50 WBC RBC Hgb Hct MCV MCH MCHC RDW Coeff of Kody Plt Count Immature Gran % (Auto) Neut % (Auto) Lymph % (Auto) [place] % (Auto) Eos % (Auto) Baso % (Auto) Immature Gran # (Auto) Neut # (Auto) Lymph # (Auto) [place] # (Auto) Eos # (Auto) Baso # (Auto) D-Dimer (Manual) 1380.26 Puncture Site O2 Saturation ABG pH ABG pCO2 ABG pO2 ABG HCO3 ABG Total CO2 ABG Base Excess [place] Test O2 Delivery Device FiO2 % Sodium Potassium Chloride Carbon Dioxide Anion Gap BUN Creatinine Estimated GFR (MDRD) BUN/Creatinine Ratio Glucose Lactic Acid 8.9 Calcium Total Bilirubin AST ALT Alkaline Phosphatase B-Natriuretic Peptide 23 Total Protein Albumin Globulin Albumin/Globulin Ratio Procalcitonin Urine Color Urine Clarity Urine pH Ur Specific [place] Urine Protein Urine Glucose (UA) Urine Ketones Urine Blood Urine Nitrite Urine Bilirubin Urine Urobilinogen Ur Leukocyte Esterase 01/15/18 01/15/18 06:50 08:14 WBC RBC Hgb Hct MCV MCH MCHC RDW Coeff of Kody Plt Count Immature Gran % (Auto) Neut % (Auto) Lymph % (Auto) [place] % (Auto) Eos % (Auto) Baso % (Auto) Immature Gran # (Auto) Neut # (Auto) Lymph # (Auto) [place] # (Auto) Eos # (Auto) Baso # (Auto) D-Dimer (Manual) Puncture Site O2 Saturation ABG pH ABG pCO2 ABG pO2 ABG HCO3 ABG Total CO2 ABG Base Excess [place] Test O2 Delivery Device FiO2 % Sodium Potassium Chloride Carbon Dioxide Anion Gap BUN Creatinine Estimated GFR (MDRD) BUN/Creatinine Ratio Glucose Lactic Acid Calcium Total Bilirubin AST ALT Alkaline Phosphatase B-Natriuretic Peptide Total Protein Albumin Globulin Albumin/Globulin Ratio Procalcitonin 0.11 Urine Color Yellow Urine Clarity Clear Urine pH 5.5 Ur Specific [place] 1.020 Urine Protein Negative Urine Glucose (UA) Negative Urine Ketones Trace Urine Blood Negative Urine Nitrite Negative Urine Bilirubin 1+ Urine Urobilinogen 0.2 Ur Leukocyte Esterase Negative Orders Category Date Time Status ADMIT PATIENT INPATIENT .TO MEDSURG (MONITORED BED) ADMISSION 01/15/18 08: 49 Active ABG DRAW REQUEST Stat CARDIO 01/15/18 06:36 Completed EKG-(ED ONLY) Stat CARDIO 01/15/18 06:36 Completed EKG-(IP & OP ONLY) DAILY CARDIO 01/16/18 06:00 Ordered EKG-(IP & OP ONLY) DAILY CARDIO 01/17/18 06:00 Ordered EKG-(IP & OP ONLY) DAILY CARDIO 01/18/18 06:00 Ordered NEBULIZER TREATMENT Stat CARDIO 01/15/18 06:38 Completed NEBULIZER TREATMENT Stat CARDIO 01/15/18 08:50 Ordered ACTIVITY .BR with BRP CARE 01/15/18 08:46 Ordered INTAKE & OUTPUT Q8HR CARE 01/15/18 08:46 Ordered TELEMETRY MONITORING TELE CARE 01/15/18 08:50 Active VITAL SIGNS Q8HR CARE 01/15/18 08:46 Ordered REGULAR DIET DIETARY 01/15/18 Lunch Ordered Fire Assistant [ED DATA ANALYSIS ASSISTANT APPLIED] .ONCE EMERGENCY 01/15/18 06:37 Active ED IV/MEDIPORT/POWERPORT .ONCE EMERGENCY 01/15/18 06:38 Active ABG Stat LAB 01/15/18 06:36 Completed B-TYPE NATRIURETIC PEPTIDE Stat LAB 01/15/18 06:50 Completed BLOOD CULTURE (ED ONLY) Stat LAB 01/15/18 06:50 Received CBC W/ AUTO DIFF DAILY@0600 LAB 01/16/18 06:00 Ordered CBC W/ AUTO DIFF DAILY@0600 LAB 01/17/18 06:00 Ordered CBC W/ AUTO DIFF Stat LAB 01/15/18 06:50 Completed COMPREHENSIVE METABOLIC PANEL DAILY@0600 LAB 01/16/18 06:00 Ordered COMPREHENSIVE METABOLIC PANEL DAILY@0600 LAB 01/17/18 06:00 Ordered COMPREHENSIVE METABOLIC PANEL Stat LAB 01/15/18 06:50 Completed CREATINE KINASE Q8H LAB 01/15/18 15:00 Ordered CREATINE KINASE Q8H LAB 01/15/18 23:00 Ordered D-DIMER Stat LAB 01/15/18 06:50 Completed LACTIC ACID Stat LAB 01/15/18 06:50 Completed PROCALCITONIN Stat LAB 01/15/18 06:50 Completed TROPONIN I Q8H LAB 01/15/18 15:00 Ordered TROPONIN I Q8H LAB 01/15/18 23:00 Ordered URINALYSIS C & S IF INDICATED Stat LAB 01/15/18 08:14 Completed 0.9 % Sodium Chloride [Saline Flush] MEDS 01/15/18 06:38 Active 1 syr IVF PRN PRN Budesonide/Formoterol Fumarate [Symbicort 160-4.5 Mcg MEDS 01/15/18 09:00 Ordered Inhaler] 2 puff IH BID Ceftriaxone Sodium [Rocephin] MEDS 01/15/18 06:52 Discontinued 1 gm .ROUTE .STK-MED ONE Ceftriaxone Sodium [Rocephin] 1 gm MEDS 01/15/18 09:00 Ordered 0.9 % Sodium Chloride [Sodium Chloride] 50 ml IV DAILY Ceftriaxone Sodium [Rocephin] 1 gm MEDS 01/15/18 06:38 Discontinued 0.9 % Sodium Chloride [Sodium Chloride] 50 ml IV ONCE Ipratropium/Albuterol Neb [Duoneb] MEDS 01/15/18 06:38 Discontinued 1 vial NEB ONCE STA Ipratropium/Albuterol Neb [Duoneb] MEDS 01/15/18 12:00 Ordered 1 vial NEB RTQ6H Lisinopril [Zestril] MEDS 01/15/18 09:00 Ordered 20 mg PO DAILY Methylprednisolone Sod Succ/Pf [Solu-Medrol 125 mg] MEDS 01/15/18 13:00 Ordered 60 mg IVP Q8HR Methylprednisolone Sod Succ/Pf [Solu-Medrol 40 mg] MEDS 01/15/18 06:38 Discontinued 40 mg IVP ONCE STA Omeprazole [Prilosec] MEDS 01/16/18 06:30 Ordered 20 mg PO QDAC Propranolol HCl [Propranolol HCl] MEDS 01/15/18 09:00 Ordered 40 mg PO BID Sodium Chloride 0.9% [Sodium Chloride] 1,000 ml MEDS 01/15/18 09:00 Ordered IV 75 mls/hr CT CERVICAL SPINE W/O CONTRAST Stat RADS 01/15/18 06:[address] CHEST W/O CONTRAST Stat RADS 01/15/18 06:[address] HEAD W/O CONTRAST Stat RADS 01/15/18 06:[address] LUMBAR SPINE W/O CONTRAST Stat RADS 01/15/18 06:[address] PELVIS W/O CONTRAST Stat RADS 01/15/18 06:[address] THORACIC SPINE W/O CONTRAST Stat RADS 01/15/18 06:38 Completed KNEE, LEFT 4 VIEWS Stat RADS 01/15/18 06:39 Completed VQ SCAN [PULMONARY VENT/PERFUSION/ NM] Stat RADS 01/15/18 08:46 Ordered Medications Generic Name Dose Route Start Last Admin Trade Name Niru PRN Reason Stop Dose Admin Albuterol/Ipratropium 1 vial 01/15/18 12:00 Duonelinsey ROWE RTQ6H WOLF Budesonide/Formoterol Fumarate 2 puff 01/15/18 09:00 Symbicort 160-4.5 Mcg Inhaler IH BID WOLF Ceftriaxone Sodium 1 gm/ 50 mls @ 75 mls/hr 01/15/18 09:00 Sodium Chloride IV DAILY WOLF Sodium Chloride 1,000 mls @ 75 mls/hr 01/15/18 09:00 Sodium Chloride IV .[id number] WOLF Methylprednisolone Sodium Succinate 60 mg 01/15/18 13:00 Solu-Medrol 125 Mg IVP Q8HR WOLF Non-Formulary Medication 20 mg 01/15/18 09:00 Lisinopril [Zestril] PO DAILY WOLF Non-Formulary Medication 40 mg 01/15/18 09:00 Propranolol Hcl [Propranolol Hcl] PO BID WOLF Omeprazole 20 mg 01/16/18 06:30 Prilosec PO QDAC WOLF Sodium Chloride 1 syr 01/15/18 06:38 01/15/18 07:00 Saline Flush IVF 1 syr PRN PRN Administration To flush IV Discontinued Medications Generic Name Dose Route Start Last Admin Trade Name Niru PRN Reason Stop Dose Admin Albuterol/Ipratropium 1 vial 01/15/18 06:38 01/15/18 07:00 Duoneb SOLEDAD 01/15/18 06:39 1 vial ONCE STA Administration Ceftriaxone Sodium 1 gm/ 50 mls @ 75 mls/hr 01/15/18 06:38 01/15/18 07:00 Sodium Chloride IV 01/15/18 07:17 75 mls/hr ONCE STA Administration Methylprednisolone Sodium Succinate 40 mg 01/15/18 06:38 01/15/18 06:59 Solu-Medrol 40 Mg IVP 01/15/18 06:39 40 mg ONCE STA Administration Vital Signs: Temp Pulse Resp BP Pulse Ox 01/15/18 06:12 99.9 F H 94 H 22 101/66 94 L Departure <EPI BAIN - Last Filed: 01/15/18 07:03> - Departure Time of Disposition: 08:53 Pt referred to PMD for follow-up: Yes IPMP verified?: No Disposition Discussed With: Patient <AFUA BABB - Last Filed: 01/15/18 08:57> - Departure Disposition: ADMITTED INPATIENT Discharge Problem: Shortness of breath Renal failure Qualifiers: Renal failure chronicity: unspecified chronicity Qualified Code(s): N19 - Unspecified kidney failure Instructions: COPD (Chronic Obstructive Pulmonary Disease) (ED) Condition: Good Additional Instructions: Please call your Family Physician as soon as possible to schedule a follow-up appointment.Please call your Family Physician as soon as possible to schedule a follow-up appointment. Allergies/Adverse Reactions: Allergies prednisone Adverse Reaction (Severe, Verified 01/15/18 06:25) irritability meloxicam Adverse Reaction (Verified 01/15/18 06:25) Vomiting naproxen Adverse Reaction (Verified 01/15/18 06:25) Vomiting tramadol Adverse Reaction (Verified 01/15/18 06:25) Hives Home Medications: Ambulatory Orders Albuterol Sulfate 1.25 mg NEB TID PRN 01/26/13 Carboxymethylcellulose Sodium [Lubricant Eye Drops] 1 drop EACHEYE QID PRN 06/12 Lisinopril [Zestril] 20 mg PO DAILY 03/26/16 Hydrocodone Bit/Acetaminophen [[place] 10-325] 10 - 325 mg PO Q6H PRN 01/15/18
[2018-01-15] MEDS ORDERED: ROCEPHIN ONE (06:52)
--- NOTE | 2018-01-15 08:00 | DI ---
EXAM: Radiographs, left knee HISTORY: Initial presentation for left knee trauma. COMPARISON: None available. TECHNIQUE: Four views. FINDINGS: Bone mineralization is normal. There is no fracture or dislocation. Osteoarthritic díaz es are present which are moderate to severe in greatest in the medial and patellofemoral compartments . No focal soft tissue abnormality is seen. IMPRESSION: No fracture or dislocation.
--- NOTE | 2018-01-15 08:03 | CT ---
EXAM: CT cervical spine without contrast. HISTORY: Initial presentation for neck trauma due to a fall. COMPARISON: 12/15/2015. TECHNIQUE: Multiple axial images of the cervical spine were obtained without intravenous contrast. Images were reformatted in the sagittal and coronal planes. FINDINGS: There is approximately 0.2 cm anterolisthesis of C4 on C5. Alignment is otherwise normal. Vertebral body and intervertebral disc heights are maintained. No acute fracture is seen. Multile luis alberto uncovertebral hypertrophy and facet arthropathy noted which cause multilevel neural foraminal drake rowing, greatest at C4-5. Moderate to severe arthritic changes of the anterior C1-2 articulation not ed. Paravertebral soft tissues are without acute abnormality. The lung apices are clear. Since the prior study, there has been no significant interval change. IMPRESSION: No acute abnormality of the cervical spine.
--- NOTE | 2018-01-15 08:04 | CT ---
EXAM: CT head without contrast. HISTORY: Initial presentation for head trauma. COMPARISON: 01/28/2016. TECHNIQUE: Multiple axial images of the brain were obtained from the skull base through the vertex w ithout intravenous contrast. Multiplanar reformats were provided. FINDINGS: There is no intracranial hemorrhage or extraaxial collection. Stable probable small arach noid cyst in the right posterior fossa. The gonzáles-white differentiation is maintained without evidenc e for acute large vascular territory infarction. The cortical sulci and basal cisterns are well visu alized. There is no hydrocephalus, mass effect, or midline shift. The paranasal sinuses and mastoid air cells are clear. The calvarium is intact. Since the prior study, there has been no significant interval change. IMPRESSION: No acute intracranial abnormality.
--- NOTE | 2018-01-15 08:10 | CT ---
Exam: CT thoracic spine without intravenous contrast. Comparison: CT abdomen pelvis performed 04/24/2017. Reason for exam: Fall. FINDINGS: No acute fracture or malalignment. The vertebral body and intervertebral body disc space heights are well maintained. There is a normal appearing thoracic kyphotic curve. There is mild bas ilar atelectasis. Impression: No acute fracture or listhesis in the thoracic spine.
--- NOTE | 2018-01-15 08:11 | CT ---
EXAM: CT LUMBAR SPINE HISTORY: Fall TECHNIQUE: CT lumbar spine without contrast. 3-mm axial sections. Coronal and sagittal reformation s. COMPARISON: 12/23/2013 FINDINGS: No acute fracture or subluxation is identified. Vertebral body heights are normal. Postop changes o f the lower spine including decompressive laminectomy. Severe arthropathy of the lower facets and sa croiliac joints. Diffuse degenerative disc disease most apparent at L2/L3 and L3/L4 where there is m oderate central canal stenosis and at least mild bilateral neural foraminal narrowing. There is no p araspinal hematoma. Incidental note of atherosclerotic disease and relative atrophy of the left kidn ey. IMPRESSION: 1. No acute fracture or subluxation. 2. Postop and degenerative changes similar in degree to that previously seen.
--- NOTE | 2018-01-15 08:13 | CT ---
EXAM: CT Pelvis without contrast. HISTORY: Initial presentation for pelvic trauma due to a fall. COMPARISON: 04/24/2017. TECHNIQUE: Multiple axial images of the pelvis were obtained without intravenous contrast. Images w ere reformatted in the coronal and sagittal plane. FINDINGS: Please note that evaluation of the pelvic soft tissue structures is limited due to lack of intravenous contrast. Extensive lower lumbar degenerative changes and L5 laminectomy changes are incompletely imaged. Ther e is partial ankylosis of both sacroiliac joints. No acute fracture or dislocation identified involv ing the pelvis. Lucency through S4 on the sagittal views appear stable from prior study, likely a va scular groove. 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 There is no subchondral collapse. No erosions are seen. Paravertebral soft tissues with out acute abnormality. Atherosclerotic calcifications are present. No localized soft tissue abnorma lity is seen. Since the prior study, there has been no significant interval change. IMPRESSION: No acute fracture or dislocation.
--- NOTE | 2018-01-15 08:14 | CT ---
Exam: CT of the chest without intravenous contrast. Comparison: Chest x-ray performed 10/13/2017. Reason for exam: Cough and congestion. FINDINGS: Image interpretation is limited by the lack of intravenous contrast administration. Mild basilar atelectasis without pleural effusion, focal consolidation or pneumothorax. The aorta is normal in course and caliber measuring 3.7 cm at the level of the arch. The heart is not enlarged. The partially imaged left kidney appears atrophic. There is an apparent fat density structure in the proximal duodenum on axial image number 60. No acute fracture or malalignment is seen in the thoraci c spine. The liver is lower in attenuation in the spleen on the noncontrasted study. No acute fracture or malalignment is seen in the thoracic spine. Impression: 1. No acute imaging findings are seen within the thorax. 2. The partially imaged left kidney appears atrophic with mild surrounding inflammatory change. If clinical concern exists, further evaluation may be performed. 3. Fat density structure in the proximal duodenum may represent a lipoma. If clinical concern exist s, further evaluation may be performed.
[2018-01-15] MEDS ORDERED: SYMBICORT 160-4.5 MCG INHALER IH SCH (09:00)
[2018-01-15] MEDS ORDERED: NON-FORMULARY MEDICATION (Propranolol Hcl [Propranolol Hcl] 40 MG) PO SCH (09:00)
[2018-01-15] MEDS ORDERED: NON-FORMULARY MEDICATION (Lisinopril [Zestril] 20 MG) PO SCH (09:00)
[2018-01-15] MEDS ORDERED: INDERAL PO SCH (09:00)
[2018-01-15] MEDS ORDERED: SODIUM CHLORIDE 1,000 ML IV SCH (09:00)
[2018-01-15] MEDS ORDERED: ZESTRIL PO SCH (09:00)
[2018-01-15] MEDS ORDERED: DUONEB NEB SCH (12:00)
--- NOTE | 2018-01-15 12:05 | NM ---
Exam: Ventilation perfusion lung scan. Date: 01/15/2018. Comparison: None. HISTORY: Dyspnea. TECHNIQUE: The patient was injected with 5.3 mCi of technetium 99m MAA and 32.1 mCi of technetium 99 m DTPA was used for the ventilation portion of the study. FINDINGS: There is normal physiologic distribution of the radiotracer on the perfusion and ventilati on images. Impression: Normal ventilation perfusion lung scan.
[2018-01-15] MEDS ORDERED: SOLU-MEDROL 125 MG IVP SCH (13:00)
[2018-01-16] MEDS ORDERED: PRILOSEC PO SCH (06:30)
[2018-01-16] MEDS ORDERED: ROCEPHIN 1 GM in SODIUM CHLORIDE 50 ML IV SCH (09:00)
== END 2018-01-15 11:20 | disposition left against medical advice (07) ==
LOC: ED 06:12 → UNDOADMIN 08:55 → MEDSURG A 08:55 → ED 11:20
DX: R06.02 Shortness of breath (principal); N19 Unspecified kidney failure; R79.89 Other specified abnormal findings of blood chemistry; J44.9 Chronic obstructive pulmonary disease, unspecified; M54.2 Cervicalgia; R51 Headache; M54.9 Dorsalgia, unspecified; M25.562 Pain in left knee; R05 Cough; I25.10 Atherosclerotic heart disease of native coronary artery without angina pectoris; I10 Essential (primary) hypertension; E78.5 Hyperlipidemia, unspecified; R53.1 Weakness; R06.2 Wheezing; R50.9 Fever, unspecified; I25.2 Old myocardial infarction; F17.210 Nicotine dependence, cigarettes, uncomplicated; W19.XXXA Unspecified fall, initial encounter
CPT/HCPCS: 36415; 80053; 81001; 82803; 83605; 83880; 84145; 85025; 85379; 87040; 93005; 93010; 94640; 96365; 96375; 99284

== ENCOUNTER 2018-03-02 08:54 | Emergency (ER) ==
[2018-03-02 08:55] VITALS: BMI 23.6
[2018-03-02 09:06] VITALS: BP 136/81; TEMP 96.9
[2018-03-02] MEDS ORDERED: ROCEPHIN 1 GM in SODIUM CHLORIDE 50 ML IV STA (09:20)
[2018-03-02] MEDS ORDERED: SOLU-MEDROL 125 MG IVP STA (09:20)
[2018-03-02] MEDS ORDERED: ROCEPHIN ONE (09:33)
[2018-03-02] MEDS ORDERED: DUONEB NEB STA (09:43)
--- NOTE | 2018-03-02 11:05 | DI ---
EXAM: Chest two views HISTORY: Cough, short of air COMPARISON: 10/13/2017 TECHNIQUE: Two views of the chest were performed FINDINGS: The lungs are clear. There is no pleural effusion or pneumothorax. The heart is normal i n size. The mediastinal contour is normal. There are no acute abnormalities of the bones. IMPRESSION: No acute cardiopulmonary process.
--- NOTE | 2018-03-02 12:45 | ED.PDOC ---
General ED Provider: Dr. AFUA BABB Chief Complaint: Respiratory Complaint Stated Complaint: wheezing, short of air cough Time Seen by Physician: 09:00 (seen with the pt's nurse and ZAKIA AT ALL TIMES ) Mode of Arrival: Walk-In Information Source: Patient Exam Limitations: No limitations Primary Care Provider[facility] Nursing and Triage Documentation Reviewed and Agree: Yes Does patient meet sepsis criteria?: No If yes, has appropriate treatment been initiated?: No System Inflammatory Response Syndrome: Not Applicable Sepsis Protocol: For patient's 13 years and over: Temp is 96.8 and below OR 101 and greater Pulse >90 BPM Resp >20/minute Acutely Altered Mental Status Are patient's symptoms suggestive of a new infection, such as: -Pneumonia -Skin, Soft Tissue -Endocarditis -UTI -Bone, Joint Infection -Implantable Device -Acute Abdominal Infection -Wound Infection -Meningitis -Blood Stream Catheter Infection -Unknown Respiratory Complaint Exam - Respiratory Complaint/Exam Onset/Duration: 2 DAYS Symptoms Are: Still present Timing: Intermittent Initial Severity: Moderate Current Severity: Mild Location: Chest Character: Reports: Non-productive cough, Dry cough Aggravating: Reports: None Alleviating: Reports: Bronchodilators, Spontaneous resolution Associated Signs and Symptoms: Reports: URI, Nasal congestion. Denies: Rapid breathing, Dyspnea, Fever, Chills, Chest pain, Pleuritic chest pain, Wheezing, Hemoptysis, Dizziness, Calf pain, Calf swelling, Edema, Hoarseness, Sinus discomfort, Vomiting, Sore throat, Weight loss, Decreased oral intake, Increased thirst, Increased appetite, Increased urination Related History: Reports: Similar episode History of Healthcare-Acquired Pneumonia: No Related Surgical History: Reports: None Pulmonary Embolism Risk Factors: Smoking Cardiac Risk Factors: Reports: Smoking Pseudomonas Risk Factors: Reports: Chronic Lung Disease Tuberculosis Risk Factors: Reports: None Status Asthmaticus Risk Factors: Reports: None Home Oxygen Use: No Recent Stress Test: No Recent Echo/LV Function: No Current Antibiotic Use: No Current Asthma Medication Use: No Respiratory Distress: None Inadequate Respiratory Effort: No Dysphagia Present: No Stridor Present: No JVD Present: No Retractions: Not Present Diminished Breath Sounds: Yes Sinus Tenderness: None Grunting Respirations: No Kussmaul Respirations: No Differential Diagnoses: CHF, Pulmonary Edema, COPD Exacerbation, Pneumonia, Pulmonary Embolism, Bronchitis, Lower Resp. Infection Quality Indicators For Pneumonia: Antibiotics in 6hr-admit, SpO2 assessed, Empiric Antibiotic Rx, Vital signs, Mental status assessed Non-Traumatic Chest Pain Syncope: EKG Performed Review of Systems - Review Of Systems Constitutional: Reports: No symptoms Eyes: Reports: No symptoms Ears, Nose, Mouth, Throat: Reports: No symptoms Respiratory: Reports: Cough, Short of air, Wheezing Cardiac: Reports: No symptoms GI: Reports: No symptoms : Reports: No symptoms Musculoskeletal: Reports: No symptoms Skin: Reports: No symptoms Neurological: Reports: No symptoms Endocrine: Reports: No symptoms Hematologic/Lymphatic: Reports: No symptoms All Other Systems: Reviewed and Negative Past Medical History - Past Medical History Previously Healthy: Yes Endocrine: Reports: Dyslipidemia Cardiovascular: Reports: CAD, [place], Hypertension Respiratory: Reports: COPD Hematological: Reports: None Gastrointestinal: Reports: None Genitourinary: Reports: None Neuro/Psych: Reports: None Musculoskeletal: Reports: Back Pain, Joint Pain Cancer: Reports: None Other Pertinent Past Medical History: back surgery 1978 HTN CHOL [place] COPD CAD - Surgical History General Surgical History: Reports: Back Surgery (back surgery 1978) - Family History Family History: Reports: Hypertension - Social History Smoking Status: Current every day smoker, Heavy tobacco smoker Hx Substance Use: No Alcohol Screening: None Physical Exam - Physical Exam Appearance: Ill-appearing Ill-appearing: Moderate Pain Distress: Mild Eyes: NILE, EOMI, Conjunctiva clear ENT: Ears normal, Nose normal, Oropharynx normal Respiratory: Rhonchi, Wheezes Cardiovascular: RRR, Pulses normal, No rub, No murmur GI/: Soft, Nontender, No masses, Bowel sounds normal, No Organomegaly Musculoskeletal: Normal strength, ROM intact, No edema, No calf tenderness Skin: Warm, Dry, Normal color Neurological: Sensation intact, Motor intact, Reflexes intact, Cranial nerves intact, Alert, Oriented Psychiatric: Affect appropriate, Mood appropriate Interpretation - Radiology Interpretation Radiology Interpretation By: Radiologist Radiology Results: No acute changes - Wild Life Manager Rate: Normal Rhythm: Sinus Ectopy: None - EKG Interpretation Rate: Normal Rhythm: Sinus Wendell: Left Re-Evaluation - Re-Evaluation Time of Re-Evaluation: 10:00 Status: Improved Vital Signs Stable: Yes Pain Level: 0 Appearance: NAD Lungs: Clear Skin: Warm and Dry Neuro: Alert and Oriented X3 CV: RRR - Re-Evaluation Time of Re-Evaluation: 11:00 Status: Improved Vital Signs Stable: Yes Pain Level: 0 Appearance: NAD Skin: Warm and Dry Neuro: Alert and Oriented X3 CV: RRR (NEED FOR ADMISSION DISCUSSED ROBBIN PRESENT AT ALL TIMES PT REFUSED TO BE ADMITTED LEFT AMA RISKS FULLY DISCLOSED STILL LEFT AMA) Critical Care Note - Critical Care Note Total Time (mins): 60 Course - Course Hematology/Chemistry: 03/02/18 09:30 03/02/18 09:30 Orders, Labs, Meds: Lab Review 03/02/18 03/02/18 03/02/18 09:30 09:30 09:30 WBC 7.83 RBC 3.47 L Hgb 10.6 L Hct 32.2 L MCV 92.8 MCH 30.5 MCHC 32.9 RDW Coeff of Kody 13.4 Plt Count 292 Immature Gran % (Auto) 0.3 Neut % (Auto) 61.0 Lymph % (Auto) 24.4 Eagle % (Auto) 7.8 Eos % (Auto) 5.1 Baso % (Auto) 1.4 Immature Gran # (Auto) 0.0 Neut # (Auto) 4.8 Lymph # (Auto) 1.9 Eagle # (Auto) 0.6 Eos # (Auto) 0.4 Baso # (Auto) 0.1 D-Dimer (Manual) Puncture Site O2 Saturation ABG pH ABG pCO2 ABG pO2 ABG HCO3 ABG Total CO2 ABG Base Excess Luís Test FiO2 % Sodium 142.3 Potassium 4.94 Chloride 111.5 H Carbon Dioxide 20.0 L Anion Gap 15.74 BUN 43.6 H Creatinine 2.23 H Estimated GFR (MDRD) 30.00 BUN/Creatinine Ratio 19.55 Glucose 90.5 Lactic Acid Calcium 9.05 Total Bilirubin 0.40 AST 21.8 ALT 15.7 Alkaline Phosphatase 106.6 Total Creatine Kinase 44.3 L Troponin I < 0.012 NT-Pro-B Natriuret Pep Total Protein 7.37 Albumin 4.22 Globulin 3.15 Albumin/Globulin Ratio 1.33 Procalcitonin 03/02/18 03/02/18 03/02/18 09:30 09:30 09:30 WBC RBC Hgb Hct MCV MCH MCHC RDW Coeff of Kody Plt Count Immature Gran % (Auto) Neut % (Auto) Lymph % (Auto) Eagle % (Auto) Eos % (Auto) Baso % (Auto) Immature Gran # (Auto) Neut # (Auto) Lymph # (Auto) Eagle # (Auto) Eos # (Auto) Baso # (Auto) D-Dimer (Manual) Puncture Site R rad O2 Saturation 92.0 L ABG pH 7.369 ABG pCO2 30.9 L ABG pO2 64.0 L ABG HCO3 17.8 L ABG Total CO2 19 L ABG Base Excess -7 L Luís Test + FiO2 % 21.0 Sodium Potassium Chloride Carbon Dioxide Anion Gap BUN Creatinine Estimated GFR (MDRD) BUN/Creatinine Ratio Glucose Lactic Acid 1.74 Calcium Total Bilirubin AST ALT Alkaline Phosphatase Total Creatine Kinase Troponin I NT-Pro-B Natriuret Pep Total Protein Albumin Globulin Albumin/Globulin Ratio Procalcitonin 0.06 03/02/18 03/02/18 09:30 09:30 WBC RBC Hgb Hct MCV MCH MCHC RDW Coeff of Kody Plt Count Immature Gran % (Auto) Neut % (Auto) Lymph % (Auto) Eagle % (Auto) Eos % (Auto) Baso % (Auto) Immature Gran # (Auto) Neut # (Auto) Lymph # (Auto) Eagle # (Auto) Eos # (Auto) Baso # (Auto) D-Dimer (Manual) 3145.53 Puncture Site O2 Saturation ABG pH ABG pCO2 ABG pO2 ABG HCO3 ABG Total CO2 ABG Base Excess Luís Test FiO2 % Sodium Potassium Chloride Carbon Dioxide Anion Gap BUN Creatinine Estimated GFR (MDRD) BUN/Creatinine Ratio Glucose Lactic Acid Calcium Total Bilirubin AST ALT Alkaline Phosphatase Total Creatine Kinase Troponin I NT-Pro-B Natriuret Pep 106.000 Total Protein Albumin Globulin Albumin/Globulin Ratio Procalcitonin Orders Category Date Time Status ABG DRAW REQUEST Stat CARDIO 03/02/18 09:19 Completed EKG-(ED ONLY) Stat CARDIO 03/02/18 09:18 Completed EKG-(ED ONLY) Stat CARDIO 03/02/18 11:58 Ordered NEBULIZER TREATMENT Stat CARDIO 03/02/18 09:18 Completed NEBULIZER TREATMENT Stat CARDIO 03/02/18 09:43 Completed ED IV/MEDIPORT/POWERPORT .ONCE EMERGENCY 03/02/18 09:18 Active ABG Stat LAB 03/02/18 09:30 Completed BLOOD CULTURE (ED ONLY) Stat LAB 03/02/18 09:30 Received CBC W/ AUTO DIFF Stat LAB 10/05/18 09:30 Completed COMPREHENSIVE METABOLIC PANEL Stat LAB 03/02/18 09:30 Completed CREATINE KINASE Stat LAB 03/02/18 09:30 Completed D-DIMER Stat LAB 03/02/18 09:30 Completed LACTIC ACID Stat LAB 03/02/18 09:30 Completed PRO-BNP [NT-PROBNP] Stat LAB 03/02/18 09:30 Completed PROCALCITONIN Stat LAB 03/02/18 09:30 Completed TROPONIN I Stat LAB 03/02/18 09:30 Completed 0.9 % Sodium Chloride [Saline Flush] MEDS 03/02/18 09:18 Active 1 syr IVF PRN PRN Ceftriaxone Sodium [Rocephin] MEDS 03/02/18 09:33 Discontinued 1 gm .ROUTE .STK-MED ONE Ceftriaxone Sodium [Rocephin] 1 gm MEDS 03/02/18 09:20 Discontinued 0.9 % Sodium Chloride [Sodium Chloride] 50 ml IV ONCE Ipratropium/Albuterol Neb [Duoneb] MEDS 03/02/18 09:43 Discontinued 1 vial NEB ONCE STA Methylprednisolone Sod Succ/Pf [Solu-Medrol 125 mg] MEDS 03/02/18 09:20 Discontinued 125 mg IVP ONCE STA CHEST, 2 VIEWS PA & LAT Stat RADS 03/02/18 09:18 Completed Medications Generic Name Dose Route Start Last Admin Trade Name Freq PRN Reason Stop Dose Admin Sodium Chloride 1 syr 03/02/18 09:18 03/02/18 10:35 Saline Flush IVF 1 syr PRN PRN Administration To flush IV Discontinued Medications Generic Name Dose Route Start Last Admin Trade Name Freq PRN Reason Stop Dose Admin Albuterol/Ipratropium 1 vial 03/02/18 09:43 03/02/18 09:44 Duoneb NEB 03/02/18 09:44 1 vial ONCE STA Administration Ceftriaxone Sodium 1 gm/ 50 mls @ 75 mls/hr 03/02/18 09:20 03/02/18 10:07 Sodium Chloride IV 03/02/18 09:59 75 mls/hr ONCE STA Administration Methylprednisolone Sodium Succinate 125 mg 03/02/18 09:20 03/02/18 10:06 Solu-Medrol 125 Mg IVP 03/02/18 09:21 125 mg ONCE STA Administration Vital Signs: Temp Pulse Resp BP Pulse Ox 10/05/18 08:55 96.9 F L 90 18 136/81 98 Departure - Departure Time of Disposition: 12:48 (THE PT HAD VERY HIGH D/DIMERS RISK OF DEADLY CONDITION P.E. DISCUSSED HIS NURSE WAS PRESENT, I TOLD THE PT PLEASE HAVE LOWER LEG ULTRA SOUND BUT HE SAID HE CAN NOT STAY.) Disposition: AMA Discharge Problem: Renal failure Qualifiers: Renal failure chronicity: chronic Chronic kidney disease stage: unspecified stage Qualified Code(s): N18.9 - Chronic kidney disease, unspecified Instructions: Shortness of Breath (ED) Condition: Good Pt referred to PMD for follow-up: Yes (BUT REFUSED TO BE ADMITTED ) IPMP verified?: No Additional Instructions: CALL YOUR PRIMARY CARE FOR A FOLLOW UP NEXT WEEK. RETURN IF PROBLEMS Allergies/Adverse Reactions: Allergies prednisone Adverse Reaction (Severe, Verified 03/02/18 08:57) irritability meloxicam Adverse Reaction (Verified 03/02/18 08:57) Vomiting naproxen Adverse Reaction (Verified 03/02/18 08:57) Vomiting tramadol Adverse Reaction (Verified 03/02/18 08:57) Hives Home Medications: Ambulatory Orders Albuterol Sulfate 1.25 mg NEB TID PRN 01/26/13 Lisinopril [Zestril] 20 mg PO DAILY 03/26/16 Hydrocodone Bit/Acetaminophen [[place] 10-325] 10 - 325 mg PO Q6H PRN 01/15/18 Disposition Discussed With: Patient, Family
== END 2018-03-02 12:44 | disposition left against medical advice (07) ==
LOC: ED 08:54
DX: N18.9 Chronic kidney disease, unspecified (principal); R06.02 Shortness of breath; I10 Essential (primary) hypertension; R79.89 Other specified abnormal findings of blood chemistry; I25.2 Old myocardial infarction; I25.10 Atherosclerotic heart disease of native coronary artery without angina pectoris; J44.9 Chronic obstructive pulmonary disease, unspecified; E78.5 Hyperlipidemia, unspecified; F17.210 Nicotine dependence, cigarettes, uncomplicated
CPT/HCPCS: 36415; 80053; 82550; 82803; 83605; 83880; 84145; 84484; 85025; 85379; 87040; 93005; 93010; 94640; 96365; 96375; 99283

== ENCOUNTER 2018-04-11 14:45 | Outpatient (CLI) | END 2018-04-11 14:46 | disposition home or self-care (01) | LOC: FCC-LAB 14:45 | PROVIDERS: ATTEND Nurse Practitioner Family | DX: N18.3 Chronic kidney disease, stage 3 (moderate) (principal); I10 Essential (primary) hypertension | CPT/HCPCS: 36415; 80048; 81001; 85025 ==

== ENCOUNTER 2018-08-22 14:19 | Emergency (ER) ==
[2018-08-22 14:34] VITALS: BP 126/76; TEMP 98.5; BMI 24.0
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
[2018-08-22] MEDS ORDERED: ALBUTEROL 0.042% NEB NEB PRN (14:54)
--- NOTE | 2018-08-22 15:34 | CT ---
EXAM: CT Head HISTORY: Pain around left orbit COMPARISON: 01/15/2018 TECHNIQUE: CT head performed without contrast FINDINGS: There is no mass effect, midline shift, or intracranial hemmorhage. Busby white differenti ation is preserved. There is no extra-axial collection. The ventricles, sulci, and basal cisterns a re patent and symmetric. There is no depressed calvarial fracture. The mastoid air cells are clear. The visualized paranasal sinuses are clear. There are intracranial atherosclerotic calcifications. IMPRESSION: No acute intracranial abnormality.
== END 2018-08-22 16:28 | disposition home or self-care (01) ==
LOC: ED 14:19
DX: S09.90XA Unspecified injury of head, initial encounter (principal); R51 Headache; M25.552 Pain in left hip; M25.551 Pain in right hip; F17.210 Nicotine dependence, cigarettes, uncomplicated; D50.9 Iron deficiency anemia, unspecified; W22.8XXA Striking against or struck by other objects, initial encounter; E78.5 Hyperlipidemia, unspecified; I25.10 Atherosclerotic heart disease of native coronary artery without angina pectoris; I25.2 Old myocardial infarction; I10 Essential (primary) hypertension; J44.9 Chronic obstructive pulmonary disease, unspecified
CPT/HCPCS: 36415; 80053; 85025; 99283

== ENCOUNTER 2018-09-03 11:32 | Outpatient (CLI) | payer OTHER | END 2018-09-03 11:33 | disposition home or self-care (01) | LOC: LAB 11:32 | PROVIDERS: ATTEND Nurse Practitioner Family | DX: D64.9 Anemia, unspecified (principal); I10 Essential (primary) hypertension; N18.3 Chronic kidney disease, stage 3 (moderate) | CPT/HCPCS: 36415; 80053; 82607; 82728; 82746; 83540; 83550; 85025 ==

== ENCOUNTER 2018-09-07 10:12 | Outpatient (CLI) | END 2018-09-07 10:13 | disposition home or self-care (01) | LOC: LAB 10:12 | PROVIDERS: ATTEND Nurse Practitioner Family | DX: D64.9 Anemia, unspecified (principal) | CPT/HCPCS: 82272 ==

== ENCOUNTER 2018-11-12 06:50 | Emergency (ER) ==
[2018-11-12 07:05] VITALS: BP 133/68; TEMP 98.2; BMI 23.8
[2018-11-12] MEDS ORDERED: SODIUM CHLORIDE 1,000 ML IV STA (07:56)
--- NOTE | 2018-11-12 08:43 | CT ---
EXAM: CT of the abdomen pelvis without contrast History: Cough and right flank pain. Comparison: Chest CT 11/14/2018, CT abdomen pelvis 04/24/2017 Technique: Multiplanar CT images through the abdomen pelvis were obtained without the administration of IV contrast Findings: Lung bases are clear. No acute osseous abnormalities. Avascular necrosis of the left femo ral head. 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 No gallstones identified by CT. No focal liver or splenic lesions. Atrophic left kidney. No renal stones and no hydronephrosis. No ureteral calculi. Atherosclerotic vascular calcifications. No per ipancreatic inflammation. Adrenal glands are unremarkable. No bowel obstruction. The appendix is n ot dilated or inflamed. No bladder wall thickening. Prostate is not enlarged. No perirectal inflam mation. No abdominal aortic aneurysm. No pathologically enlarged lymph nodes. Impression: 1. No acute intra-abdominal or pelvic process. 2. Stable atrophic left kidney. 3. Avascular necrosis within the left femoral head
--- NOTE | 2018-11-12 08:44 | CT ---
EXAM: CT of the chest without contrast History: Cough, right flank pain. Comparison: Chest CT 01/15/2018, CT abdomen pelvis 03/02/2018 Technique: Multiplanar CT images through the thorax were obtained without the administration of IV c ontrast Findings: Heart size is normal. No pericardial effusion. Great vessels are unremarkable. No patho logically enlarged thoracic lymph nodes. Coronary calcifications. No consolidation. No pleural flu id and no pneumothorax. No suspicious lung nodules or lung masses. Incidental azygos fissure. For details in the upper abdomen, please see dedicated CT abdomen pelvis done on the same day. No ac burns paiute osseous abnormalities. Impression: 1. No acute intrathoracic process. 2. Coronary artery disease
--- NOTE | 2018-11-12 09:45 | ED.PDOC ---
General ED Provider: Dr. AFUA BABB Chief Complaint: Back Pain Stated Complaint: L, hip pain , INTERMITTENT CHEST PAIN , LLQ PAIN Time Seen by Physician: 07:00 (NO INJURY REPORTED ) Mode of Arrival: Walk-In Information Source: Patient Exam Limitations: No limitations Primary Care Provider: NAREN YE Referred to ED by: Other Nursing and Triage Documentation Reviewed and Agree: Yes Does patient meet sepsis criteria?: No If yes, has appropriate treatment been initiated?: No System Inflammatory Response Syndrome: Not Applicable Sepsis Protocol: For patient's 13 years and over: Temp is 96.8 and below OR 101 and greater Pulse >90 BPM Resp >20/minute Acutely Altered Mental Status Are patient's symptoms suggestive of a new infection, such as: -Pneumonia -Skin, Soft Tissue -Endocarditis -UTI -Bone, Joint Infection -Implantable Device -Acute Abdominal Infection -Wound Infection -Meningitis -Blood Stream Catheter Infection -Unknown Miscellaneous Complaint Exam - Complex/Multi-System Complaint/Exam Onset/Duration: 2 DAYS , HIP PAIN IS CHRONIC BUT INCREASED Symptoms Are: Still present (INTERMS OF LEFT HIP) Episodes Lasting: Days Initial Severity: Mild Current Severity: Mild Location of Pain: LEFT HIP, CHEST Pain Radiates to: NO Character: DULL Aggravating: NO Alleviating: SPONTANOUS Associated Signs and Symptoms: Reports: Cough, Abdominal pain (LLQ ). Denies: Decreased responsiveness, Confusion, Agitation, Dizziness, Weakness, Syncope, Headache, Short of air, Wheezing, Hemoptysis, Chest pain, Palpitations, Edema, Nausea, Vomiting, Diarrhea, Back pain, Dysuria, Hematemesis, Melena, Decreased oral intake, Fever, Diaphoresis, Immunocompromised, Anticoagulation Therapy, Recent medication changes, Indwelling medical office technician, Prior MRSA, Prior VRE, Recent trauma, Remote trauma Recent Echo/LV Function: No Respiratory Distress: None JVD Present: No Tachypnea Present: No Stridor Present: No Abdominal Findings: Present: Normal findings Glascow Coma Scale (see protocol): 15 Meningeal Signs Positive: Yes Focal Weakness: Present: None Focal Sensory Loss: Present: None Gait: Normal Gag Reflex Present: Yes Babinski Sign: Negative Right, Negative Left Skin Findings: Present: Normal findings Joint Swelling Present: No Differential Diagnosis: Cardiac Ischemia Quality Indicators for Cardiac Chest Pain: EKG in 10min. Quality Indicators for AMI: EKG in 10min. Quality Indicator For Non-Traumatic Chest Pain/Syncope: EKG Performed Review of Systems - Review Of Systems Constitutional: Reports: Malaise Eyes: Reports: No symptoms Ears, Nose, Mouth, Throat: Reports: No symptoms Respiratory: Reports: Cough Cardiac: Reports: Chest pain GI: Reports: Abdominal pain (LLQ) : Reports: No symptoms Musculoskeletal: Reports: Joint pain (LEFT HIP) Skin: Reports: No symptoms Neurological: Reports: No symptoms Endocrine: Reports: No symptoms Hematologic/Lymphatic: Reports: No symptoms All Other Systems: Reviewed and Negative Past Medical History - Past Medical History Previously Healthy: Yes Endocrine: Reports: Dyslipidemia Cardiovascular: Reports: CAD, AR, Hypertension Respiratory: Reports: COPD Hematological: Reports: None Gastrointestinal: Reports: None Genitourinary: Reports: None Neuro/Psych: Reports: None Musculoskeletal: Reports: Back Pain, Joint Pain Cancer: Reports: None Other Pertinent Past Medical History: back surgery 1978 HTN CHOL AR COPD CAD - Surgical History General Surgical History: Reports: Back Surgery (back surgery 1978) - Family History Family History: Reports: Hypertension - Social History Smoking Status: Current every day smoker, Heavy tobacco smoker Hx Substance Use: No Alcohol Screening: None - Immunizations Tetanus Shot up to Date: No Physical Exam - Physical Exam Appearance: Well-appearing, No pain distress, Well-nourished Eyes: NILE, EOMI, Conjunctiva clear ENT: Ears normal, Nose normal, Oropharynx normal Respiratory: Airway patent, Breath sounds clear, Breath sounds equal, Respirations nonlabored Cardiovascular: RRR, Pulses normal, No rub, No murmur GI/: Soft, Nontender, No masses, Bowel sounds normal, No Organomegaly Musculoskeletal: Limited ROM (LEFT HIP PAIN) Skin: Warm, Dry, Normal color Neurological: Sensation intact, Motor intact, Reflexes intact, Cranial nerves intact, Alert, Oriented Psychiatric: Affect appropriate, Mood appropriate Interpretation - Radiology Interpretation Radiology Interpretation By: Radiologist Radiology Results: Positive Exam Interpreted: Other (AVN LEFT HIP) - Digital Content Producer Rhythm: Sinus - EKG Interpretation Rate: Normal Rhythm: Sinus (WELLENS TYPE T WAVE) [place]: Left ST Segment: Other (WELLEN TYPE TWAVE V2,3 INVERTED T WAVES V4,5,6 ALL OF WHICH ARE NEW) Re-Evaluation - Re-Evaluation Time of Re-Evaluation: 09:00 Status: Improved Vital Signs Stable: Yes Pain Level: 0 Appearance: NAD Lungs: Clear Skin: Warm and Dry Neuro: Alert and Oriented X3 CV: RRR Additional Comments: no pain pt is refusing a transfer to the ri - Re-Evaluation Time of Re-Evaluation: 12:00 Status: Unchanged Vital Signs Stable: Yes Pain Level: 0 Appearance: NAD Skin: Warm and Dry Neuro: Alert and Oriented X3 CV: RRR (no chest refused tranfer to [facility] requested transfer [facility]) Physician Notification - Case Discussed Physician Notified: naomi Time of Notification: 13:36 (transfer now) Critical Care Note - Critical Care Note Total Time (mins): 0 Course - Course Hematology/Chemistry: 11/12/18 07:53 11/12/18 07:53 Orders, Labs, Meds: Lab Review 11/12/18 11/12/18 11/12/18 07:53 07:53 07:53 WBC 10.16 RBC 3.55 L Hgb 10.6 L Hct 32.6 L MCV 91.8 MCH 29.9 MCHC 32.5 RDW Coeff of Kody 14.1 Plt Count 267 Immature Gran % (Auto) 0.2 Neut % (Auto) 63.5 Lymph % (Auto) 24.8 [place] % (Auto) 8.3 Eos % (Auto) 2.1 Baso % (Auto) 1.1 Immature Gran # (Auto) 0.0 Neut # (Auto) 6.5 Lymph # (Auto) 2.5 [place] # (Auto) 0.8 Eos # (Auto) 0.2 Baso # (Auto) 0.1 Sodium 139.4 Potassium 3.61 Chloride 107.1 H Carbon Dioxide 23.4 Anion Gap 12.51 BUN 16.4 Creatinine 1.48 H Estimated GFR (MDRD) 48.00 BUN/Creatinine Ratio 11.08 Glucose 97.7 Calcium 8.83 Total Bilirubin 0.58 AST 24.1 ALT 14.0 Alkaline Phosphatase 121.9 H Total Creatine Kinase 29.4 L Troponin I < 0.012 Total Protein 6.94 Albumin 4.01 Globulin 2.93 Albumin/Globulin Ratio 1.36 Amylase 74.6 Lipase 89.4 Urine Color Yellow Urine Clarity Clear Urine pH 5.5 Ur Specific Mouthcard 1.025 Urine Protein Trace Urine Glucose (UA) Negative Urine Ketones Negative Urine Blood Negative Urine Nitrite Negative Urine Bilirubin Negative Urine Urobilinogen 0.2 Ur Leukocyte Esterase Negative Urine Microscopic RBC 0-2 Urine Microscopic WBC 0-2 Ur Squamous Epith Cells 0-2 Urine Mucus Trace Orders Category Date Time Status EKG-(ED ONLY) Stat CARDIO 11/12/18 07:45 Completed AMYLASE Stat LAB 11/12/18 07:53 Completed CBC W/ AUTO DIFF Stat LAB 11/12/18 07:53 Completed COMPREHENSIVE METABOLIC PANEL Stat LAB 11/12/18 07:53 Completed CREATINE KINASE Stat LAB 11/12/18 07:53 Completed LIPASE Stat LAB 11/12/18 07:53 Completed LUPUS ANTICOAGULANT PANEL Urgent LAB 11/12/18 10:09 Received TROPONIN I Stat LAB 11/12/18 07:53 Completed URINALYSIS C & S IF INDICATED Stat LAB 11/12/18 07:53 Completed Sodium Chloride 0.9% [Sodium Chloride] 1,000 ml MEDS 11/12/18 07:56 Active IV 125 mls/hr CT ABD/PEL WO RENAL STONE PROT Stat RADS 11/12/18 07:[address] CHEST W/O CONTRAST Stat RADS 11/12/18 07:46 Completed Medications Generic Name Dose Route Start Last Admin Trade Name Freq PRN Reason Stop Dose Admin Sodium Chloride 1,000 mls @ 125 mls/hr 11/12/18 07:56 11/12/18 08:33 Sodium Chloride IV 11/12/18 15:55 125 mls/hr .Q8H STA Administration Vital Signs: Temp Pulse Resp BP Pulse Ox 11/12/18 06:51 98.2 F 61 20 133/68 96 Departure - Departure Time of Disposition: 13:36 Disposition: TSF SHORT-TRM HOSP Discharge Problem: Renal insufficiency, Avascular necrosis of bone of left hip, New electrocardiogram abnormalities consistent with ischemia noted during preoperative cardiovascular examination Anemia Qualifiers: Anemia type: unspecified type Qualified Code(s): D64.9 - Anemia, unspecified Instructions: Angina (DC), Chest Pain (ED), Anemia (ED) Condition: Good Pt referred to PMD for follow-up: Yes IPMP verified?: No Additional Instructions: Please call your Family Physician as soon as possible to schedule a follow-up appointment. Allergies/Adverse Reactions: Allergies prednisone Adverse Reaction (Severe, Verified 11/12/18 07:22) irritability meloxicam Adverse Reaction (Verified 11/12/18 07:22) Vomiting naproxen Adverse Reaction (Verified 11/12/18 07:22) Vomiting tramadol Adverse Reaction (Verified 11/12/18 07:22) Hives Home Medications: Ambulatory Orders Albuterol Sulfate 1.25 mg NEB TID PRN 01/26/13 Lisinopril [Zestril] 20 mg PO DAILY 03/26/16 Hydrocodone Bit/Acetaminophen [[place] 10-325] 10 - 325 mg PO Q6H PRN 01/15/18 Tizanidine HCl 4 mg PO BID PRN 08/22/18 Cyanocobalamin (Vitamin B-12) [Liquid B-12] 1,000 mcg PO DAILY 09/03/18 Iron,Carbonyl [Iron Chews] 15 mg PO DAILY 09/03/18 Multivitamin [Multi-Vitamin Daily] 1 each PO DAILY 09/03/18 Sucralfate [Carafate] 1 gm PO BID 09/03/18 Disposition Discussed With: Patient, Family
[2018-11-12] MEDS ORDERED: ASPIRIN EC PO STA (13:39)
== END 2018-11-12 14:49 | disposition short-term general hospital (02) ==
LOC: ED 06:50
DX: N28.9 Disorder of kidney and ureter, unspecified (principal); D64.9 Anemia, unspecified; M87.9 Osteonecrosis, unspecified; R94.31 Abnormal electrocardiogram [ECG] [EKG]; R07.9 Chest pain, unspecified; R10.32 Left lower quadrant pain; M54.9 Dorsalgia, unspecified; R05 Cough; I25.2 Old myocardial infarction; I25.10 Atherosclerotic heart disease of native coronary artery without angina pectoris; E78.5 Hyperlipidemia, unspecified; I10 Essential (primary) hypertension; F17.210 Nicotine dependence, cigarettes, uncomplicated; Z79.899 Other long term (current) drug therapy
CPT/HCPCS: 36415; 80053; 81001; 82150; 82550; 83690; 84484; 85025; 85597; 85598; 85610; 85613; 85670; 85730; 85732; 86146; 86147; 93005; 93010; 96360; 96361; 99285

== ENCOUNTER 2018-11-12 14:50 | Outpatient (CLI) ==
[2018-11-12 07:05] VITALS: BMI 23.8
== END 2018-11-12 15:41 | disposition short-term general hospital (02) ==
LOC: AMBL 14:50
PROVIDERS: ATTEND Internal Medicine
DX: M54.9 Dorsalgia, unspecified (principal); M87.9 Osteonecrosis, unspecified; D64.9 Anemia, unspecified; R94.31 Abnormal electrocardiogram [ECG] [EKG]; R00.1 Bradycardia, unspecified

== ENCOUNTER 2019-01-30 09:54 | Outpatient (CLI) | payer OTHER ==
[2018-12-09 16:20] VITALS: BMI 22.0
--- NOTE | 2019-02-01 11:45 | ECHOCOLOR ---
Date of Exam: 01/30/19 Ordering Physician: DR. MANUEL LOPEZ Reason for Echo: SOB, CHEST PAIN, CAD WITH STENT, H/O MA M-Mode Normal Adult Results LV Dimensions Normal Adult Results AoV Opening excursions >1.6 >1.6 LVEDD-base- 3.5-5.8 ENLARGED Ao root dimensions 2.0-3.7 3.5 LVESD-base- 3.1-4.6 L. Atrium dimensions 1.9-3.8 4.2 Post. Wall thickness 0.8-1.1 1.1 IV septum (thickness) 0.7-1.2 1.2 Post. Wall excursion 0.72-1.3 NORMAL Septal motion 0.3 Systolic motion R. Ventricular cavity 1.5-2.0 NORMAL LVEF 60% 35% Paradoxical septal wall motion NORMAL 2-D: ENLARGED LEFT ATRIAL AND LEFT VENTRICLE CAVITIES, APICAL SEPTAL WALL AKINETIC--VALVES NORMAL, NO EFFUSION, NO THROMBUS DOPPLER WITH COLOR FLOW: MODERATE AORTIC REGURGITATION, MILD TO MODERATE MITRAL REGURGITATION, TRIVIAL TO MILD TRICUSPID REGURGITATION, MILD PULMONARY INSUFFICIENCY M-MODE: MV: NORMAL AV: NORMAL TV: NORMAL PV: CHAMBER SIZE: ENLARGED LEFT ATRIAL AND LEFT VENTRICLE CAVITIES WALL MOTION: APICAL SEPTAL WALL AKINETIC PERICARDIUM: NORMAL INTERPRETATION: 1. BORDERLINE LEFT VENTRICULAR HYPERTROPHY WITH ENLARGED LEFT ATRIAL CAVITY 2. ENLARGED LEFT VENTRICLE CAVITY 3. APICAL SEPTAL WALL AKINETIC WITH EJECTION FRACTION 30 TO 35% 4. MODERATE AORTIC REGURGITATION, MILD TO MODERATE MITRAL REGURGITATION, TRIVIAL TO MILD TRICUSPID REGURGITATION, MILD PULMONARY INSUFFICIENCY MTDD
== END 2019-01-30 09:55 | disposition home or self-care (01) ==
LOC: CAR 09:54 → EEVIPCON 10:00
PROVIDERS: ATTEND Internal Medicine
DX: R06.02 Shortness of breath (principal); R07.9 Chest pain, unspecified